=== PATIENT | female | born 1970 | race Caucasian/White ===

== ENCOUNTER 2016-05-08 12:47 | Emergency (ER) | payer OTHER ==
[2016-05-08 13:27] VITALS: BP 137/75; PULSE 79; TEMP 98; BMI 25.6
--- NOTE | 2016-05-08 14:34 | PDOC ---
History of Present Illness - General Chief Complaint: Headache Stated Complaint: HEADACHE Time Seen by Provider: 05/08/16 14:03 History Source: Patient Exam Limitations: No Limitations - History of Present Illness Initial Comments: 05/08/16 14:40 45-year-old female presents to the ED with complaints of 2 days of left retro- orbital pressure which she states is similar to her previous episodes and resolved the last 2 times with medication. Patient states has had a normal head CT and has seen Dr. Walton in the past but has not seen him in the past year. Patient denies visual changes, dizziness, nausea fever, neck stiffness, or ear pain. Patient denies recent dental work, recent head injury or travel. Timing/Duration: reports: other (2 days ) Severity: Yes: moderate Associated Symptoms: reports: other (headache) Past History - Past Medical History Allergies/Adverse Reactions: Allergies Allergy/AdvReac Type Severity Reaction Status Date / Time No Known Allergies Allergy Verified 05/08/16 13:28 Home Medications: Ambulatory Orders NK [No Known Home Medication] 05/08/16 - Reproductive History LMP Normal: Yes Is Patient Now?: No - Psycho/Social/Smoking Cessation Hx Suicidal Ideation: No Smoking History: Never smoked Information on smoking cessation initiated: No Hx Alcohol Use: No Drug/Substance Use Hx: No Substance Use Type: None Hx Substance Use Treatment: No Patient Lives Alone: No Lives with/in: spouse/SO Neuro Specific PMHX - Complaint Specific PMHX Migraine: Yes Review of Systems - Review of Systems Able to Perform ROS?: Yes Constitutional: No: Symptoms Reported HEENTM: No: Symptoms Reported Respiratory: No: Symptoms reported Cardiac (ROS): No: Symptoms Reported ABD/GI: No: Symptoms Reported : No: Symptoms Reported Musculoskeletal: No: Symptoms Reported Integumentary: No: Symptoms Reported Neurological: Yes: Headache Endocrine: No: Symptoms Reported Hematologic/Lymphatic: No: Symptoms Reported *Physical Exam - Vital Signs Last Vital Signs Temp Pulse Resp BP Pulse Ox 98 F 79 18 137/75 99 05/08/16 13:25 05/08/16 13:25 05/08/16 13:25 05/08/16 13:25 05/08/16 13:25 - Physical Exam General Appearance: Yes: Nourished, Appropriately Dressed. No: Apparent Distress HEENT: positive: EOMI, JAKUB, TMs Normal, Pharynx Normal. negative: Pale Conjunctivae Neck: positive: Supple. negative: Tender, Decreased range of motion, Lymphadenopathy (R), Lymphadenopathy (L) Respiratory/Chest: positive: Lungs Clear, Normal Breath Sounds. negative: Respiratory Distress, Accessory Muscle Use Cardiovascular: positive: Regular Rhythm, Regular Rate. negative: Murmur Extremity: negative: Pedal Edema Integumentary: positive: Normal Color, Warm, Moist. negative: Rash Neurologic: positive: Motor Strength 5/5 (ambulatory) Medical Decision Making - Medical Decision Making 05/08/16 14:35 Patient with complaints of left retro-orbital discomfort for the past 2 days without visual changes, dizziness, nausea or fever. Patient states presentation to similar episodes when she has migraines and responds well to Fioricet. Pt states normally occur with her menstrual which she has had x 3 days. Patient states had none at home so decided come to the ER. Pt has had - head ct (2014). Pt ordered for Fioricet. 05/08/16 15:28 Patient states headache has resolved and will be sent home with the same medication and told to follow-up with Dr. Esquivel *DC/Admit/Observation/Transfer Diagnosis at time of Disposition: Headache Qualifiers: Headache type: unspecified Headache chronicity pattern: acute headache Intractability: intractable Qualified Code(s): R51 - Headache - Discharge Dispostion Disposition: HOME Condition at time of disposition: Improved - Referrals Referrals: Maria Del Carmen Angulo MD [Primary Care Provider] - Catia Whitman MD [Staff Physician] - - Patient Instructions Printed Discharge Instructions: DI for Hormonal and Tension Headaches Additional Instructions: Please take fioricet as needed for discomfort. Please follow up with Dr. Whitman as recommended. Please avoid salt and high fatty foods for the next month and follow-up with your PCP
[2016-05-08] MEDS ORDERED: ACETAMINOPHEN/CAFFEINE/BUTALBITAL 1 TAB PO ONE (14:45)
== END 2016-05-08 15:36 | disposition home or self-care (01) ==
LOC: JERFT 12:47
DX: R51 Headache (principal)
CPT/HCPCS: 99281-25

== ENCOUNTER 2017-02-14 20:16 | Emergency (ER) | payer SELFPAY ==
--- NOTE | 2017-02-14 20:21 | PDOC ---
Rapid Medical Evaluation Time Seen by Provider: 02/14/17 20:17 Medical Evaluation: Allergies Allergy/AdvReac Type Severity Reaction Status Date / Time No Known Allergies Allergy Verified 05/08/16 13:28 02/14/17 20:17 I have performed a brief in-person evaluation of this patient. The patient presents with a chief complaint of:rt flank pain, on cipro x 3 days Pertinent physical exam findings: rt cva tenderness, tachy cardic 112 , ? septic I have ordered the following:ua, ucx The patient will proceed to the ED for further evaluation.
[2017-02-14 20:22] VITALS: BP 137/80; PULSE 112; TEMP 98.8; BMI 26.5
[2017-02-14 20:42] LABS: URINE APPEARANCE CLEAR; URINE BILIRUBIN NEGATIVE (NEGATIVE); URINE BLOOD 1+ (NEGATIVE); URINE COLOR STRAW; URINE GLUCOSE (UA) NEGATIVE (NEGATIVE); URINE KETONE NEGATIVE (NEGATIVE); URINE NITRITE NEGATIVE (NEGATIVE); URINE PROTEIN NEGATIVE (NEGATIVE); URINE UROBILINOGEN NEGATIVE mg/dL (0.2-1.0)
[2017-02-14 20:46] LABS: URINE BACTERIA RARE /hpf (NONE SEEN); URINE MUCUS RARE; URINE RBC 3; URINE WBC 8
[2017-02-14] MEDS ORDERED: KETOROLAC TROMETHAMINE 30 MG/1 ML VIAL IVPUSH ONE (23:10)
[2017-02-14] MEDS ORDERED: KETOROLAC TROMETHAMINE 30 MG/1 ML VIAL ONE (23:22)
[2017-02-14 23:36] LABS: BASOPHIL 0.4 % (0-2.0); EOSINOPHIL 0.6 % (0-4.5); MCHC 33.3 g/dl (32.0-36.0); MEAN CELL VOLUME 90.2 fl (80-96); MEAN PLT VOLUME 7.8 fl (7.5-11.1); NEUTROPHILS 68.9 % (42.8-82.8); PLATELET COUNT 324 K/MM3 (134-434); RDW 14.4 % (11.6-15.6); WHITE BLOOD COUNT 13.3 K/mm3 (4.0-10.0)
--- NOTE | 2017-02-14 23:54 | PDOC ---
History of Present Illness - General History Source: Patient, Old Records Exam Limitations: No Limitations - History of Present Illness Initial Comments: 02/14/17 23:54 The patient is a 46 year old female, with no significant past medical history, who presents to the emergency department with right flank pain for over 5 days. She describes the right flank pain as ranging from mild to moderate, without radiation but notes that certain movements exacerbates her pain. She reports that she saw her PMD 3 days ago who prescribed her Antibiotics (Cipro, which she has been taking with little to no relief of her symptoms. She also reports nausea and fever associated with her chief complaint, The patient denies chest pain, shortness of breath, headache and dizziness. Denies chills, vomit, diarrhea and constipation. Denies dysuria, frequency, urgency and hematuria. Allergies: None Past surgical history: None reported Social history: No alcohol, tobacco or drug use reported <Norbert Pulido - Last Filed: 02/14/17 23:54> <April Jurado - Last Filed: 02/15/17 03:26> - General Chief Complaint: Pain Stated Complaint: PAIN, ACUTE Time Seen by Provider: 02/14/17 20:17 Past History <Norbert Pulido - Last Filed: 02/14/17 23:54> - Past Medical History COPD: No - Suicide/Smoking/Psychosocial Hx Smoking History: Never smoked Have you smoked in the past 12 months: No Information on smoking cessation initiated: No Hx Alcohol Use: No Drug/Substance Use Hx: No Substance Use Type: None Hx Substance Use Treatment: No <April Jurado - Last Filed: 02/15/17 03:26> - Past Medical History Allergies/Adverse Reactions: Allergies Allergy/AdvReac Type Severity Reaction Status Date / Time No Known Allergies Allergy Verified 05/08/16 13:28 Home Medications: Ambulatory Orders Acetaminophen/Caffeine/Butalb [Fioricet -] 1 tab PO BID PRN #14 tablet MDD 2 08/17 Review of Systems - Review of Systems Able to Perform ROS?: Yes Comments:: 02/14/17 23:54 GENERAL/CONSTITUTIONAL: (+) Fever. No chills. No weakness. HEAD, EYES, EARS, NOSE AND THROAT: No change in vision. No ear pain or discharge. No sore throat.- CARDIOVASCULAR: No chest pain or shortness of breath RESPIRATORY: No cough, wheezing, or hemoptysis. GASTROINTESTINAL: (+) Nausea. No vomiting, diarrhea or constipation. GENITOURINARY: (+) Right flank pain. No dysuria, frequency, or change in urination. MUSCULOSKELETAL: No joint or muscle swelling or pain. No neck or back pain. SKIN: No rash NEUROLOGIC: No headache, vertigo, loss of consciousness, or change in strength/ sensation. ENDOCRINE: No increased thirst. No abnormal weight change HEMATOLOGIC/LYMPHATIC: No anemia, easy bleeding, or history of blood clots. ALLERGIC/IMMUNOLOGIC: No hives or skin allergy. <Norbert Pulido - Last Filed: 02/14/17 23:54> *Physical Exam - Vital Signs Last Vital Signs Temp Pulse Resp BP Pulse Ox 98.8 F 112 H 18 137/80 99 02/14/17 20:20 02/14/17 20:20 02/14/17 20:20 02/14/17 20:20 02/14/17 20:20 - Physical Exam Comments: 02/14/17 23:55 GENERAL: Awake, alert, and fully oriented, in no acute distress HEAD: No signs of trauma, normocephalic, atraumatic EYES: PERRLA, EOMI, sclera anicteric, conjunctiva clear ENT: Auricles normal inspection, hearing grossly normal, nares patent, oropharynx clear without exudates. Moist mucosa NECK: Normal ROM, supple, no lymphadenopathy, JVD, or masses LUNGS: No distress, speaks full sentences, clear to auscultation bilaterally HEART: Regular rate and rhythm, normal S1 and S2, no murmurs, rubs or gallops, peripheral pulses normal and equal bilaterally. ABDOMEN: (+) Right flank and groin pain. Soft, normoactive bowel sounds. No guarding, no rebound. No masses EXTREMITIES : Normal inspection, Normal range of motion, no edema. No clubbing or cyanosis. NEUROLOGICAL: Cranial nerves II through XII grossly intact. Normal speech, normal gait, no focal sensorimotor deficits SKIN: Warm, Dry, normal turgor, no rashes or lesions noted. <Norbert Pulido - Last Filed: 02/14/17 23:54> - Vital Signs Last Vital Signs Temp Pulse Resp BP Pulse Ox 98.8 F 112 H 18 137/80 99 02/14/17 20:20 02/14/17 20:20 02/14/17 20:20 02/14/17 20:20 02/14/17 20:20 <AdrienApril Dary - Last Filed: 02/15/17 03:26> ED Treatment Course - LABORATORY CBC & Chemistry Diagram: 02/14/17 23:15 02/14/17 23:15 - ADDITIONAL ORDERS Additional order review: Laboratory Results 02/14/17 02/14/17 23:15 20:30 Serum , Qual Negative Urine Color Straw Urine Appearance Clear Urine pH 6.0 Ur Specific Mccleary 1.005 Urine Protein Negative Urine Glucose (UA) Negative Urine Ketones Negative Urine Blood 1+ H Urine Nitrite Negative Urine Bilirubin Negative Urine Urobilinogen Negative Urine WBC (Auto) 8 Urine RBC (Auto) 3 Ur Epithelial Cells Rare Urine Bacteria Rare Urine Mucus Rare 02/14/17 23:15 RBC 4.42 MCV 90.2 MCHC 33.3 RDW 14.4 MPV 7.8 Neutrophils % 68.9 Lymphocytes % 15.9 D Monocytes % 14.2 H D Eosinophils % 0.6 Basophils % 0.4 - Medications Given in the ED: ED Medications Discontinued Medications Generic Name Dose Route Start Last Admin Trade Name Crispinq PRN Reason Stop Dose Admin Ketorolac Tromethamine 30 mg 02/14/17 23:10 02/14/17 23:51 Toradol Injection - IVPUSH 02/14/17 23:11 30 mg ONCE ONE Administration <Norbert Pulido - Last Filed: 02/14/17 23:54> - LABORATORY CBC & Chemistry Diagram: 02/14/17 23:15 02/14/17 23:15 - ADDITIONAL ORDERS Additional order review: Laboratory Results 02/14/17 02/14/17 23:15 20:30 Serum , Qual Negative Urine Color Straw Urine Appearance Clear Urine pH 6.0 Ur Specific Mccleary 1.005 Urine Protein Negative Urine Glucose (UA) Negative Urine Ketones Negative Urine Blood 1+ H Urine Nitrite Negative Urine Bilirubin Negative Urine Urobilinogen Negative Urine WBC (Auto) 8 Urine RBC (Auto) 3 Ur Epithelial Cells Rare Urine Bacteria Rare Urine Mucus Rare 02/14/17 23:15 RBC 4.42 MCV 90.2 MCHC 33.3 RDW 14.4 MPV 7.8 Neutrophils % 68.9 Lymphocytes % 15.9 D Monocytes % 14.2 H D Eosinophils % 0.6 Basophils % 0.4 - Medications Given in the ED: ED Medications Discontinued Medications Generic Name Dose Route Start Last Admin Trade Name Ata PRN Reason Stop Dose Admin Ketorolac Tromethamine 30 mg 02/14/17 23:10 02/14/17 23:51 Toradol Injection - IVPUSH 02/14/17 23:11 30 mg ONCE ONE Administration <April Jurado - Last Filed: 02/15/17 03:26> Medical Decision Making - Medical Decision Making 02/15/17 03:24 This 36-year-old female presents because of continued right flank pain despite being on ciprofloxacin for 3 days. She saw her primary care physician for this right flank pain and some dysuria. She was discouraged that she is still having some symptoms and came to the emergency department. Urinalysis CBC, chemistries were done Negative test She has some leukocytosis and her urine, but she is still not finish her antibiotics. CAT scan of the abdomen and pelvis did not show any obstructing kidney stones, appendix is normal, there is no small bowel obstruction, and was no diverticulitis, there is no acute abdominal pathology Impression flank pain, UTI Plan patient to finish her ciprofloxacin and continue her treatment with primary care physician <April Jurado - Last Filed: 02/15/17 03:26> *DC/Admit/Observation/Transfer - Attestations Scribe Attestion: 02/14/17 23:55 Documentation prepared by Norbert Pulido, acting as medical voucher clerk for April Jurado MD <Norbert Pulido - Last Filed: 02/14/17 23:54> <April Jurado - Last Filed: 02/15/17 03:26> Diagnosis at time of Disposition: Right flank pain Urinary tract infection Qualifiers: Urinary tract infection type: site unspecified Hematuria presence: without hematuria Qualified Code(s): N39.0 - Urinary tract infection, site not specified - Discharge Dispostion Disposition: HOME Condition at time of disposition: Stable - Referrals Referrals: Maria Del Carmen Angulo MD [Primary Care Provider] - - Patient Instructions Printed Discharge Instructions: DI for Urinary Tract Infection (UTI), DI for Flank Pain Additional Instructions: please finish your antibiotics as they were prescribed followup with your regular physician Return for any worsening symptoms Take aleve or motrin or tylenol for back pain - Post Discharge Activity
[2017-02-15 00:45] LABS: ALBUMIN 3.4 g/dl (3.4-5.0); ALK PHOS 115 U/L (45-117); ANION GAP 10 (8-16); BILIRUBIN,TOTAL 0.5 mg/dL (0.2-1.0); CALCIUM 8.4 mg/dL (8.5-10.1); CO2 25 mmol/L (21-32); CREATININE 0.7 mg/dL (0.55-1.02); GLUCOSE,RANDOM 104 mg/dL (74-106); SGPT/ALT 22 U/L (12-78); TOT PROT 7.5 g/dl (6.4-8.2)
[2017-02-15 00:46] LABS: SGOT/AST 20 U/L (15-37)
[2017-02-15 10:02] LABS: URINE LEUK ESTERASE TRACE (NEGATIVE)
== END 2017-02-15 02:18 | disposition home or self-care (01) ==
LOC: JER 20:16
PROC: 3E0333Z Introduction of Anti-inflammatory into Peripheral Vein, Percutaneous Approach (ICD-10-PCS; principal; 2017-02-14)
DX: N39.0 Urinary tract infection, site not specified (principal)
CPT/HCPCS: 36415; 74176-TC; 80053; 81003; 81015; 84703; 85025; 87086; 99282-25

== ENCOUNTER → 2017-10-19 | Day surgery (SDC) | payer OTHER ==
--- NOTE | 2017-10-20 11:18 | PATH ---
Surgical Pathology Report Patient Name: XOCHITL LAWRENCE [facility]. Rec. #: [id number] /Age/Gender: 1970 (Age: 47) / F Account: [id number] Location: [facility] Taken: 10/19/2017 Received: 10/19/2017 Reported: 10/20/2017 Physicians: Zenon Villar M.D. Specimen(s) Received A: RIGHT BREAST SPECIMEN WITH CALCIFICATIONS B: RIGHT BREAST SPECIMEN WITHOUT CALCIFICATIONS Clinical History Nonpalpable lesion Mammographic findings: Microcalcification, suspicious Final Diagnosis A. BREAST, RIGHT, WITH CALCIFICATIONS, STEREOTACTIC CORE BIOPSY: BENIGN BREAST TISSUE WITH FIBROCYSTIC CHANGES INCLUDING STROMAL FIBROSIS, MICROCYSTS, COLUMNAR CELL CHANGES, AND ASSOCIATED MICROCALCIFICATIONS. B. BREAST, RIGHT, WITHOUT CALCIFICATIONS, STEREOTACTIC CORE BIOPSY: BENIGN BREAST TISSUE WITH STROMAL FIBROSIS. Electronically Signed Yaritza Ontiveros M.D. Gross Description A. Received in formalin labeled "right breast with calcifications," are 5 hager-yellow, cylindrical portions of fibroadipose tissue ranging from 2.0-4.0 cm in length and averaging 0.2 cm in diameter. The specimens are submitted in toto in 2 cassettes. B. Received in formalin labeled "right breast without calcifications," are 4 hager-yellow, cylindrical portions of fibroadipose tissue ranging from 0.8-2.8 cm in length and averaging 0.2 cm in diameter. The specimens are submitted in toto in one cassette. Time to formalin fixation: 5 minutes Total formalin fixation time: Approximately 7 hours. /10/19/2017 [facility]10/19/2017
== END | disposition home or self-care (01) ==
LOC: FMAMMOTONE 09:18
PROVIDERS: ATTEND Internal Medicine
PROC: 0HBT3ZX Excision of Right Breast, Percutaneous Approach, Diagnostic (ICD-10-PCS; principal; 2017-10-19)
DX: N60.11 Diffuse cystic mastopathy of right breast (principal); N60.31 Fibrosclerosis of right breast; N64.89 Other specified disorders of breast; R92.1 Mammographic calcification found on diagnostic imaging of breast
CPT/HCPCS: 19081; 88305-TC

== ENCOUNTER 2018-02-02 15:46 | Emergency (ER) | payer OTHER ==
--- NOTE | 2018-02-02 17:13 | PDOC ---
History of Present Illness - General Chief Complaint: CVA/TIA Stated Complaint: ARM NUMBNESS Time Seen by Provider: 02/02/18 17:13 History Source: Patient - History of Present Illness Initial Comments: 02/02/18 17:32 The patient is a 47 year old female with a PMH of migraines who presents to our ED c/o acute onset of L sided numbness. 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 Numbness is on the L side of her face, her LUE and LLE. Notes a similar episode 6 months previous which resolved within a few minutes. No known h/o HTN , lifetime non-smoker. 10 point ROS is negative including chest pain, shortness of breath, abdominal pain, nausea/vomiting, diarrhea/constipation, dysuria/hematuria, tingling, visual or mental status changes or weakness. NKDA Surgical: R breast biopsy Social: denies toxic habits PMD: Dr. Bisi Yarbrough As per EMR, patient last evaluated in our ED in 2016 for abdominal pain at which time she was diagnosed with UTI. Patient evaluated for facial tingling in 2014 @ which time head CT was negative for ischemia. Past History - Past Medical History Allergies/Adverse Reactions: Allergies Allergy/AdvReac Type Severity Reaction Status Date / Time No Known Allergies Allergy Verified 05/08/16 13:28 Home Medications: Ambulatory Orders Acetaminophen/Caffeine/Butalb [Fioricet -] 1 tab PO BID PRN #14 tablet MDD 2 08/17 Rizatriptan Benzoate [Maxalt Boiler Reliner] 10 mg PO ASDIR 02/02/18 COPD: No - Suicide/Smoking/Psychosocial Hx Smoking History: Never smoked Have you smoked in the past 12 months: No Hx Alcohol Use: No Drug/Substance Use Hx: No Substance Use Type: None Hx Substance Use Treatment: No Review of Systems - Review of Systems Constitutional: No: Chills, Fever HEENTM: No: Blurred Vision, Double Vision Respiratory: No: Cough, Shortness of Breath Cardiac (ROS): No: Chest Pain, Lightheadedness, Palpitations, Syncope *Physical Exam - Physical Exam General Appearance: Yes: Nourished, Appropriately Dressed HEENT: positive: EOMI, JAKUB, Normal Voice, Hearing Grossly Normal. negative: TM Bulging, TM Dull, TM Erythema Neck: positive: Trachea midline, Supple Respiratory/Chest: positive: Lungs Clear, Normal Breath Sounds Cardiovascular: positive: S1, S2 Vascular Pulses: Dorsalis-Pedis (R): 2+, Doralis-Pedis (L): 2+ Gastrointestinal/Abdominal: positive: Normal Bowel Sounds, Soft Extremity: positive: Normal Capillary Refill, Normal Inspection Integumentary: positive: Normal Color, Dry, Warm Neurologic: positive: skills instructor II-XII NML intact, Fully Oriented, Alert, Other ( decreased sensation in L face (trigeminal) and LUE ). negative: Confused, Disoriented Heart Score/ECG Review - ECG Impressions Comment:: 02/05/18 01:20 There is normal sinus rhythm with a normal rate of 68 bpm. The axis is normal. The intervals are normal - pr:152ms, QRS: 86ms, QTc:410ms. There are no ST elevations or depressions. ED Treatment Course - LABORATORY CBC & Chemistry Diagram: 02/02/18 17:32 02/02/18 17:32 Medical Decision Making - Medical Decision Making 47 year old female with LUE and facial numbness. NIHSS 2. Last known normal @ 3:30 p.m. (2+ hours prior to evaluation). ED Stroke order set initiated. Consider cervical spine, brainstem, thalamic lesion. Other differential includes radiculopathy, mononeuropathy, metabolic derangement, less like auto- immune (including MS) or infectious Lyme Disease. Reassess. Patient returned from CT Alert, numbness improving. VSS CT results pending Head CT negative for acute ischemia. Patient symptomatically improved. Ambulatory around unit Will discharge home with return precautions and PMD follow-up. *DC/Admit/Observation/Transfer Diagnosis at time of Disposition: Numbness - Discharge Dispostion Disposition: HOME Condition at time of disposition: Good Decision to Admit order: No - Referrals - Patient Instructions Printed Discharge Instructions: DI for Numbness/tingling Additional Instructions: You were evaluated today for numbness and headache. A CT scan of your head showed no concerning findings. At this time you are safe for discharge home. Follow up with your primary care doctor in the next 2-3 days. Return immediately to the Emergency Department for any new/worsening/concerning symptoms. - Post Discharge Activity
[2018-02-02 17:25] VITALS: TEMP 97.9; BMI 25.7
[2018-02-02] MEDS ORDERED: ASPIRIN 325 MG TABLET PO ONE (17:29)
[2018-02-02] MEDS ORDERED: SODIUM CHLORIDE 1,000 ML IV SCH (17:30)
--- NOTE | 2018-02-02 17:47 | PDOC ---
Attending Attestation - HPI HPI: 02/02/18 18:15 The patient is a 47 year old female with no significant PMH who presents to the emergency department with a headache and neck pain since earlier today. The patient reports that she was at work earlier today (patient works as a electrician bus) when she began of experience a headache and neck pain at about 1pm. The patient reports that she subsequently too aspirin with no apparent relief. The patient states that she soon after began to experience pins and needle feeling in her left upper extremity and left leg. She denies any ataxia, weakness, slurred speech or facial asymmetry. She denies any other symptoms. She denies any fever, chills,nausea, vomiting, diarrhea, constipation or urinary symptoms. She denies any chest pain, or dizziness. The patient denies any other complaints. Documentation prepared by Mina Canseco, acting as medical laboratory technicians for Mariann Greer MD. <Mina Canseco - Last Filed: 02/02/18 18:15> - Resident Resident Name: Paulette Rand - ED Attending Attestation I have performed the following: I have examined & evaluated the patient, The case was reviewed & discussed with the resident, I agree w/resident's findings & plan, Exceptions are as noted - Physicial Exam PE: 02/02/18 17:49 GENERAL: The patient is in no acute distress. HEAD: Normal with no signs of trauma. EYES: PERRLA, EOMI, sclera anicteric, conjunctiva clear. ENT: Ears normal, nares patent, oropharynx clear without exudates. Moist mucous membranes. NECK: Normal range of motion, supple, nuchal rigidity LUNGS: Breath sounds equal, no wheezes, and no crackles. HEART:Regular rate and rhythm, normal S1 and S2 without murmur, rub or gallop. ABDOMEN: Soft, nontender EXTREMITIES: Normal range of motion, no edema. No clubbing or cyanosis. No erythema, or tenderness. NEUROLOGICAL: Cranial nerves II through XII grossly intact. Normal speech. No focal neurological deficits. Face symmetric MUSCULOSKELETAL: No cervical spine tenderness to palpation SKIN: Warm, Dry, normal turgor, no rashes or lesions noted. 02/02/18 18:06 - Medical Decision Making 02/02/18 18:08 Twelve-lead EKG was performed and reviewed by me. There is normal sinus rhythm with a normal rate of 68 bpm. The axis is normal. The intervals are normal - pr: 152ms, QRS: 86ms, QTc:410ms. There are no ST elevations or depressions. Pt presents with a complaint of headache and left sided paresthesias No weakness, slurred speech DD: complicated migraine, tia, cva, MS unlikely Will do CT head Will treat migraine Will re assess 02/02/18 19:[address] neg Pt symptoms have resolved Pt requesting to be discharged <Mariann Greer - Last Filed: 02/02/18 19:03>
[2018-02-02] MEDS ORDERED: ACETAMINOPHEN 1000 MG/100 ML VIAL (NON FORMULARY) IVPB ONE (18:09)
[2018-02-02] MEDS ORDERED: METOCLOPRAMIDE HCL INJECTION 10 MG/2 ML VIAL IVPUSH ONE (18:09)
[2018-02-02] MEDS ORDERED: METOCLOPRAMIDE HCL INJECTION 10 MG/2 ML VIAL ONE (18:14)
[2018-02-02] MEDS ORDERED: INSULIN (NOVOLOG) ASPART 100 UNITS/ML 10ML VIAL ONE (18:14)
[2018-02-02] MEDS ORDERED: ASPIRIN 325 MG TABLET ONE (18:14)
[2018-02-02] MEDS ORDERED: ACETAMINOPHEN INJECTION 100 ML IVPB ONE (18:14)
[2018-02-02 18:23] LABS: BASO % 0.5 % (0-2.0); EOS % 0.9 % (0-4.5); LYMPH % 25.3 % (8-40); MCH 30.9 pg (25.7-33.7); MEAN CELL VOLUME 90.8 fl (80-96); NEUT % 65.3 % (42.8-82.8); PLATELET COUNT 343 K/MM3 (134-434); RBC 4.84 M/mm3 (3.60-5.2); RDW 14.4 % (11.6-15.6); WHITE BLOOD COUNT 8.2 K/mm3 (4.0-10.0)
--- NOTE | 2018-02-02 18:30 | PDOC ---
NIH Stroke Scale - Initial Evaluation Level of consciousness: Alert Ask patient the month and their age: Answers both correctly Ask patient to open & close eyes; make fist and let go: Obeys both correctly Best gaze (horizontal eye movement): Normal Visual field testing: No visual field loss Facial paresis (Show teeth/raise eyebrows/close eyes tight): Normal symmetrical movement Motor Function: Left Arm: Normal Motor Function: Right Arm: Normal (extends arm 90 (or 45) degrees for 10 seconds without drift Motor Function: Left Leg: Normal (extends leg 30 degrees for 5 seconds without drift) Motor Function: Right Leg: Normal (extends leg 30 degrees for 5 seconds without drift) Limb Ataxia: No ataxia Sensory(Use pinprick test arms,legs,trunk,face/side to side): Mild to moderate decrease in sensation Best language (Describe picture, name items, read sentences): No Aphasia Dysarthria (read several words): Normal articulation Extinction and Inattention: No abnormality - Total Score NIH Stroke Scale Score: 1
[2018-02-02 18:33] VITALS: BP 164/90; PULSE 91
[2018-02-02 18:37] LABS: INR 0.97 (0.83-1.09); PROTHROMBIN TIME (PATIENT) 11.4 SEC (9.7-13.0)
[2018-02-02 18:38] LABS: URINE APPEARANCE CLEAR; URINE BILIRUBIN NEGATIVE (<2.0 mg/dL); URINE COLOR COLORLESS; URINE GLUCOSE (UA) NEGATIVE (NEGATIVE); URINE KETONE NEGATIVE (NEGATIVE); URINE LEUK ESTERASE NEGATIVE (NEGATIVE); URINE NITRITE NEGATIVE (NEGATIVE); URINE PROTEIN NEGATIVE (NEGATIVE); URINE UROBILINOGEN NEGATIVE mg/dL (0.2-1.0)
[2018-02-02 18:49] LABS: ALBUMIN 3.9 g/dl (3.4-5.0); ALK PHOS 100 U/L (45-117); ANION GAP 7 MMOL/L (8-16); BILIRUBIN,TOTAL 0.4 mg/dL (0.2-1); BLOOD UREA NITROGEN 11 mg/dL (7-18); CALCIUM 9.5 mg/dL (8.5-10.1); CHLORIDE 108 mmol/L (98-107); CHOLESTEROL 157 mg/dL (50-200); CO2 25 mmol/L (21-32); CREATININE 0.7 mg/dL (0.55-1.3); GLUCOSE,RANDOM 92 mg/dL (74-106); HDL CHOLESTEROL 74 mg/dL (40-60); POTASSIUM 4.8 mmol/L (3.5-5.1); SGOT/AST 19 U/L (15-37); SGPT/ALT 20 U/L (13-61); SODIUM 140 mmol/L (136-145); TOT PROT 7.9 g/dl (6.4-8.2); TRIGLYCERIDES 71 mg/dL (0-150)
--- NOTE | 2018-02-03 12:41 | EKG ---
Test Reason : Blood Pressure : / mmHG Vent. Rate : 068 BPM Atrial Rate : 068 BPM P-R Int : 152 ms QRS Dur : 086 ms QT Int : 386 ms P-R-T Axes : 076 063 045 degrees QTc Int : 410 ms NORMAL SINUS RHYTHM POSSIBLE LEFT ATRIAL ENLARGEMENT WHEN COMPARED WITH ECG OF 18-JAN-2015 18:46, NO SIGNIFICANT CHANGE WAS FOUND Confirmed by VIBHA CHAVEZ MD ([id number]) on 02/03/2018 12:41:00 PM Referred By: Confirmed By:VIBHA CHAVEZ MD
== END 2018-02-02 19:04 | disposition home or self-care (01) ==
LOC: JER 15:46
PROC: 3E033NZ Introduction of Analgesics, Hypnotics, Sedatives into Peripheral Vein, Percutaneous Approach (ICD-10-PCS; principal; 2018-02-02)
PROC: 3E033GC Introduction of Other Therapeutic Substance into Peripheral Vein, Percutaneous Approach (ICD-10-PCS; 2018-02-02)
DX: R20.0 Anesthesia of skin (principal)
CPT/HCPCS: 36415; 70450-TC; 71045-TC-FY; 72125-TC; 80053; 81003; 82465; 82550; 83718; 83721; 84478; 84484; 84703; 85025; 85610; 86850; 86900; 86901; 93005; 93010; 96374; 96375; 99285-25; J0131; J7030

== ENCOUNTER 2018-05-22 20:27 | Emergency (ER) | payer SELFPAY ==
--- NOTE | 2018-05-22 20:46 | PDOC ---
Rapid Medical Evaluation Chief Complaint: Pain Time Seen by Provider: 05/22/18 20:44 Medical Evaluation: Allergies Allergy/AdvReac Type Severity Reaction Status Date / Time No Known Allergies Allergy Verified 05/08/16 13:28 05/22/18 20:45 I have performed a brief in person evaluation of this patient. CC: abdominal pain HPI: Pt is a 47 YO female who has had abdominal pain x 1 day. PE: Skin: Clear Lungs: Clear Heart:RRR Abd: soft, nontender MS: Moves all extremities without difficulty Neuro: Alert and oriented Psych: Appropriate affect I have ordered the following: abdominal protocol Pt will proceed to the main ED for further evaluation. Discharge Disposition - Diagnosis Abdominal pain Qualifiers: Abdominal location: generalized Qualified Code(s): R10.84 - Generalized abdominal pain - Referrals - Patient Instructions - Post Discharge Activity
[2018-05-22 20:48] VITALS: BP 134/80; PULSE 103; TEMP 98.8; BMI 24.7
--- NOTE | 2018-05-22 21:22 | PDOC ---
*Physical Exam - Vital Signs Last Vital Signs Temp Pulse Resp BP Pulse Ox 98.8 F 103 H 18 134/80 99 05/22/18 20:45 05/22/18 20:45 05/22/18 20:45 05/22/18 20:45 05/22/18 20:45 ED Treatment Course - LABORATORY CBC & Chemistry Diagram: 05/22/18 21:05 05/22/18 21:05 Medical Decision Making - Medical Decision Making 05/22/18 21:22 Patient seen by the advanced practice provider under my direct supervision. Ancillary testing reviewed as necessary. I agree with plan as outlined by the advanced practice provider. *DC/Admit/Observation/Transfer Diagnosis at time of Disposition: Abdominal pain Qualifiers: Abdominal location: generalized Qualified Code(s): R10.84 - Generalized abdominal pain Ovarian cyst Qualifiers: Laterality: right Qualified Code(s): N83.201 - Unspecified ovarian cyst, right side - Discharge Dispostion Disposition: HOME - Referrals - Patient Instructions Printed Discharge Instructions: Ovarian Cyst Additional Instructions: you may take tylenol every 6 hours as needed for pain drink plenty of fluids start a BRAT (bananas, rice apples and toast) diet Additional Instructions: * Please call your personal physician to report your Emergency Department visit and to report your progress, if any. * If there is no improvement in symptoms in 2 days call your physician. * Return to the Emergency Department for any worsening symptoms. - Post Discharge Activity Forms/Work/School Notes: Back to Work
[2018-05-22 21:42] LABS: BASO % 0.1 % (0-2.0); EOS % 0.6 % (0-4.5); HEMATOCRIT 44.8 % (32.4-45.2); HEMOGLOBIN 15.6 GM/dL (10.7-15.3); LYMPH % 7.3 % (8-40); MCH 31.8 pg (25.7-33.7); MCHC 34.8 g/dl (32.0-36.0); MEAN CELL VOLUME 91.4 fl (80-96); MEAN PLT VOLUME 8.1 fl (7.5-11.1); MONO % 3.2 % (3.8-10.2); NEUT % 88.8 % (42.8-82.8); PLATELET COUNT 291 K/MM3 (134-434); RDW 14.2 % (11.6-15.6); WHITE BLOOD COUNT 9.1 K/mm3 (4.0-10.0)
[2018-05-22 21:50] LABS: URINE APPEARANCE SLCLOUDY; URINE BILIRUBIN NEGATIVE (<2.0 mg/dL); URINE COLOR LTYELLOW; URINE GLUCOSE (UA) NEGATIVE (NEGATIVE); URINE KETONE NEGATIVE (NEGATIVE); URINE LEUK ESTERASE NEGATIVE (NEGATIVE); URINE NITRITE NEGATIVE (NEGATIVE); URINE PROTEIN NEGATIVE (NEGATIVE); URINE UROBILINOGEN NEGATIVE mg/dL (0.2-1.0)
[2018-05-22 22:04] LABS: ALBUMIN 3.8 g/dl (3.4-5.0); ALK PHOS 111 U/L (45-117); ANION GAP 7 MMOL/L (8-16); BILIRUBIN,TOTAL 0.9 mg/dL (0.2-1); BLOOD UREA NITROGEN 17 mg/dL (7-18); CALCIUM 8.8 mg/dL (8.5-10.1); CHLORIDE 99 mmol/L (98-107); CO2 29 mmol/L (21-32); CREATININE 0.7 mg/dL (0.55-1.3); GLUCOSE,RANDOM 106 mg/dL (74-106); LIPASE 157 U/L (73-393); POTASSIUM 4.5 mmol/L (3.5-5.1); SGOT/AST 22 U/L (15-37); SGPT/ALT 25 U/L (13-61); SODIUM 135 mmol/L (136-145); TOT PROT 7.9 g/dl (6.4-8.2)
[2018-05-22] MEDS ORDERED: SODIUM CHLORIDE 0.9% 500 ML INFUS.BAG IV ONE (22:27)
[2018-05-22] MEDS ORDERED: ONDANSETRON 4 MG/2 ML VIAL IVPUSH ONE (22:27)
[2018-05-22] MEDS ORDERED: ONDANSETRON 4 MG/2 ML VIAL ONE (22:34)
--- NOTE | 2018-05-22 23:29 | PDOC ---
History of Present Illness - General Chief Complaint: Pain Stated Complaint: ABDOMINAL PAIN Time Seen by Provider: 05/22/18 20:44 History Source: Patient - History of Present Illness Initial Comments: 05/22/18 23:44 47-year-old female with right-sided abdominal pain since 1 PM today with nausea reports that the pain is worse throughout the day.. Denies fevers/chills. Reports pain is more constant to the right lower quadrant and right upper quadrant. Denies fevers/chills.Patient denies urinary symptoms, vomiting, diarrhea, constipation, chest pain, flank pain. Patient has a past medical history of hypertension. Past History - Past Medical History Allergies/Adverse Reactions: Allergies Allergy/AdvReac Type Severity Reaction Status Date / Time No Known Allergies Allergy Verified 05/22/18 20:48 Home Medications: Ambulatory Orders Hydrochlorothiazide [Hctz -] 12.5 mg PO DAILY 05/22/18 COPD: No HTN: Yes - Suicide/Smoking/Psychosocial Hx Smoking History: Never smoked Have you smoked in the past 12 months: No Information on smoking cessation initiated: No Hx Alcohol Use: No Drug/Substance Use Hx: No Substance Use Type: None Hx Substance Use Treatment: No Review of Systems - Review of Systems Able to Perform ROS?: Yes Is the patient limited Citizen [place] proficient: No Constitutional: No: Symptoms Reported, See HPI, Chills, Diaphoresis, Fever, Loss of Appetite, Malaise, Night Sweats, Weakness, Weight Stable, Unintentional Wgt. Loss, Unexplained wgt Loss, Other Respiratory: No: Symptoms reported, See HPI, Cough, Orthopnea, Shortness of Breath, SOB with Exertion, SOB at Rest, Stridor, Wheezing, Productive cough, Hemoptysis, Other Cardiac (ROS): No: Symptoms Reported, See HPI, Chest Pain, Edema, Irregular Heart Rate, Lightheadedness, Palpitations, Syncope, Chest Tightness, Other ABD/GI: Yes: Nausea, Abdominal cramping. No: Symptoms Reported, See HPI, Abdominal Distended, Abd. Pain w/ defecation, Blood Streaked Bowels, Constipated , Diarrhea, Difficulty Swallowing, Poor Appetite, Poor Fluid Intake, Rectal Bleeding, Vomiting, Indigestion, Tarry Stools, Other : No: Symptoms Reported, See HPI, Burning, Dysuria, Discharge, Frequency, Flank Pain, Hematuria, Incontinence, Pain, Urgency, Testicular Mass, Testicular Swelling, Lesions, Testicular Pain, Other *Physical Exam - Vital Signs Last Vital Signs Temp Pulse Resp BP Pulse Ox 98.8 F 103 H 18 134/80 99 05/22/18 20:45 05/22/18 20:45 05/22/18 20:45 05/22/18 20:45 05/22/18 20:45 - Physical Exam General Appearance: Yes: Appropriately Dressed Respiratory/Chest: positive: Lungs Clear, Normal Breath Sounds Female Pelvic Exam: positive: normal external exam, normal adnexa Gastrointestinal/Abdominal: positive: Normal Bowel Sounds, Tender (RUQ/RlQ), Soft Musculoskeletal: positive: Normal Inspection Extremity: positive: Normal Capillary Refill, Normal Inspection Integumentary: positive: Dry, Warm Neurologic: positive: Fully Oriented, Alert, Normal Mood/Affect Moderate Sedation - Procedure Monitoring Vital Signs: Procedure Monitoring Vital Signs Temperature 98.8 F 05/22/18 20:45 Pulse Rate 103 H 05/22/18 20:45 Respiratory Rate 18 05/22/18 20:45 Blood Pressure 134/80 05/22/18 20:45 O2 Sat by Pulse Oximetry (%) 99 05/22/18 20:45 ED Treatment Course - LABORATORY CBC & Chemistry Diagram: 05/22/18 21:05 05/22/18 21:05 - ADDITIONAL ORDERS Additional order review: Laboratory Results 05/22/18 05/22/18 05/22/18 21:08 21:08 21:05 Sodium 135 L Potassium 4.5 Chloride 99 Carbon Dioxide 29 Anion Gap 7 L BUN 17 Creatinine 0.7 Creat Clearance w eGFR > 60 Random Glucose 106 Calcium 8.8 Total Bilirubin 0.9 AST 22 ALT 25 Alkaline Phosphatase 111 Total Protein 7.9 Albumin 3.8 Lipase 157 Urine Color Ltyellow Urine Appearance Slcloudy Urine pH 7.0 Ur Specific Morrill 1.024 Urine Protein Negative Urine Glucose (UA) Negative Urine Ketones Negative Urine Blood Negative Urine Nitrite Negative Urine Bilirubin Negative Urine Urobilinogen Negative Ur Leukocyte Esterase Negative Urine HCG, Qual Negative 05/22/18 21:05 RBC 4.90 MCV 91.4 MCHC 34.8 RDW 14.2 MPV 8.1 Neutrophils % 88.8 H D Lymphocytes % 7.3 L D Monocytes % 3.2 L Eosinophils % 0.6 Basophils % 0.1 - RADIOLOGY Radiology Studies Ordered: Category Date Time Status ABDOMEN & PELVIS CT WITH CONTR [CT] Stat CT Scan 05/22/18 22:10 Completed ABDOMEN US -LIMITED [US] Stat Ultrasound 05/22/18 21:42 Completed - Medications Given in the ED: ED Medications Discontinued Medications Generic Name Dose Route Start Last Admin Trade Name Ata PRN Reason Stop Dose Admin Ondansetron HCl 4 mg 05/22/18 22:27 05/22/18 22:42 Zofran Injection IVPUSH 05/22/18 22:28 4 mg ONCE ONE Administration Sodium Chloride 1,000 ml 05/22/18 22:27 05/22/18 22:42 Normal Saline - IV 05/22/18 22:28 1,000 ml ONCE ONE Administration Progress Note - Progress Note Progress Note: Abdominal pain; ovarian cyst P: CBC slight shift noted CMP Medical Decision Making - Medical Decision Making 05/22/18 23:47 CTAP:Moderate fluid flailed gastric distention as mild fluid-filled small bowel distention due to recent indigestion. 3 cm right ovarian cyst is noted. 1 cm involuting left ovarian cyst is seated seen appendix demonstrated no definite abnormality. 05/23/18 00:32 patient has no pain now. advised to follow up saturation diver outpatient. *DC/Admit/Observation/Transfer Diagnosis at time of Disposition: Abdominal pain Qualifiers: Abdominal location: generalized Qualified Code(s): R10.84 - Generalized abdominal pain Ovarian cyst Qualifiers: Laterality: right Qualified Code(s): N83.201 - Unspecified ovarian cyst, right side - Discharge Dispostion Disposition: HOME - Referrals - Patient Instructions Printed Discharge Instructions: Ovarian Cyst Additional Instructions: you may take tylenol every 6 hours as needed for pain drink plenty of fluids start a BRAT (bananas, rice apples and toast) diet Additional Instructions: * Please call your personal physician to report your Emergency Department visit and to report your progress, if any. * If there is no improvement in symptoms in 2 days call your physician. * Return to the Emergency Department for any worsening symptoms. - Post Discharge Activity Forms/Work/School Notes: Back to Work
[2018-05-22] MEDS ORDERED: KETOROLAC TROMETHAMINE 30 MG/1 ML VIAL IVPUSH ONE (23:30)
[2018-05-22] MEDS ORDERED: KETOROLAC TROMETHAMINE 30 MG/1 ML VIAL ONE (23:35)
== END 2018-05-23 00:44 | disposition home or self-care (01) ==
LOC: JER 20:27
PROC: 3E033GC Introduction of Other Therapeutic Substance into Peripheral Vein, Percutaneous Approach (ICD-10-PCS; principal; 2018-05-22)
PROC: 3E0333Z Introduction of Anti-inflammatory into Peripheral Vein, Percutaneous Approach (ICD-10-PCS; 2018-05-22)
DX: N83.201 Unspecified ovarian cyst, right side (principal); I10 Essential (primary) hypertension
CPT/HCPCS: 36415; 74177-TC; 76705-TC; 80053; 81003; 83690; 84703; 85025; 99283-25

== ENCOUNTER 2018-05-27 18:26 | Emergency (ER) | payer SELFPAY ==
[2018-05-27 18:36] VITALS: BP 148/84; PULSE 79; TEMP 97.7; BMI 28.3
--- NOTE | 2018-05-27 18:49 | PDOC ---
History of Present Illness <Danni Weldon - Last Filed: 05/27/18 19:59> - History of Present Illness Initial Comments: 47yo F with PMH of HTN presenting with RLQ abdominal pain and L. sided back pain. Patient states that she presented to this ED three days ago for the same symptoms. She was told that she has a kidney stone, discharged, and instructed to take tylenol for her pain and make dietary changes. Patient has taken tylenol at home with minimal relief. She describes her pain as "sharp"" and constant. She took diclofenac yesterday which relieved her pain. Last bowel movement was this morning and was a normal formed brown stool. Last menstrual period was at the end of April. Patient reports having nausea yesterday, but no vomiting and she is not feeling nausea currently. Back pain is located in her left flank. Denies fevers, chills, urinary symptoms, chest pain, or shortness of breath. Per chart review, patient was in the ED on 05/[address] and US which did not show acute pathology. Imaging did show a 3 cm R. ovarian cyst and normal kidneys. Patient denies being told she had an ovarian cyst. History taken with assistance from [employer] park interpreter [id number]. <Nabila Huerta - Last Filed: 05/27/18 23:03> - General Chief Complaint: Pain Stated Complaint: ABD PAIN Time Seen by Provider: 05/27/18 18:49 Past History <Danni Weldon - Last Filed: 05/27/18 19:59> - Past Medical History COPD: No HTN: Yes - Suicide/Smoking/Psychosocial Hx Smoking History: Never smoked Have you smoked in the past 12 months: No Information on smoking cessation initiated: No Hx Alcohol Use: No Drug/Substance Use Hx: No Substance Use Type: None Hx Substance Use Treatment: No <Nabila Huerta - Last Filed: 05/27/18 23:03> - Past Medical History Allergies/Adverse Reactions: Allergies Allergy/AdvReac Type Severity Reaction Status Date / Time No Known Allergies Allergy Verified 05/22/18 20:48 Home Medications: Ambulatory Orders Hydrochlorothiazide [Hctz -] 12.5 mg PO DAILY 05/22/18 Methocarbamol [Robaxin -] 500 mg PO BID #30 tablet 05/27/18 Review of Systems - Review of Systems Comments:: Constitutional: no fever, no chills HEENT: no throat pain, no dysphagia Cardiovascular: no chest pain, no palpitations Respiratory: no cough, no shortness of breath Gastrointestinal: +abdominal pain, +nausea Genitourinary: no dysuria, no frequency Musculoskeletal: no leg pain, +back pain Skin: no rash, no itching Neurologic: no headache, no dizziness <Nabila - Last Filed: 05/27/18 23:03> *Physical Exam - Vital Signs Last Vital Signs Temp Pulse Resp BP Pulse Ox 97.7 F 79 20 148/84 100 05/27/18 18:34 05/27/18 18:34 05/27/18 18:34 05/27/18 18:34 05/27/18 18:34 <Danni Weldon - Last Filed: 05/27/18 19:59> - Vital Signs Last Vital Signs Temp Pulse Resp BP Pulse Ox 97.7 F 79 20 148/84 100 05/27/18 18:34 05/27/18 18:34 05/27/18 18:34 05/27/18 18:34 05/27/18 18:34 - Physical Exam Comments: General: Awake, alert, and fully oriented, in no acute distress Head: No signs of trauma Eyes: EOMI, sclera anicteric ENT: Moist mucus membranes Neck: Normal ROM, supple Lungs: Lungs clear, Normal breath sounds Cardio: Regular rhythm, S1 and S2 present Abdomen: Tender to palpation in RLQ, Soft. No guarding, no rebound, no masses; + L. CVA tenderness Extremities: Normal range of motion, Distal pulses present SKIN: Warm, Dry, normal turgor Neurologic: Cranial nerves II through XII grossly intact. Normal speech <Nabila - Last Filed: 05/27/18 23:03> Moderate Sedation - Procedure Monitoring Vital Signs: Procedure Monitoring Vital Signs Temperature 97.7 F 05/27/18 18:34 Pulse Rate 79 05/27/18 18:34 Respiratory Rate 20 05/27/18 18:34 Blood Pressure 148/84 05/27/18 18:34 O2 Sat by Pulse Oximetry (%) 100 05/27/18 18:34 <Danni Weldon - Last Filed: 05/27/18 19:59> - Procedure Monitoring Vital Signs: Procedure Monitoring Vital Signs Temperature 97.7 F 05/27/18 18:34 Pulse Rate 79 05/27/18 18:34 Respiratory Rate 20 05/27/18 18:34 Blood Pressure 148/84 05/27/18 18:34 O2 Sat by Pulse Oximetry (%) 100 05/27/18 18:34 <Nabila uHerta - Last Filed: 05/27/18 23:03> ED Treatment Course - Medications Given in the ED: ED Medications Discontinued Medications Generic Name Dose Route Start Last Admin Trade Name Ata PRN Reason Stop Dose Admin Cyclobenzaprine HCl 10 mg 05/27/18 19:48 05/27/18 19:58 Flexeril - PO 05/27/18 19:49 10 mg ONCE ONE Administration <Danni Weldon - Last Filed: 05/27/18 19:59> Medical Decision Making - Medical Decision Making 47yo F with PMH of HTN presenting with RLQ abdominal pain and L. sided back pain. Patient coming in with same complaint as three days ago. Today's abdominal exam without peritoneal signs. Back pain is likely muscular in origin as it is overlying the paravertebral muscles and UA was negative three days ago. Reviewed lab work and imaging which were benign. Discussed with patient that her pain is consistent with the ovarian cyst found three days ago and that she can take tylenol for her abdominal pain. Ordered flexeril for patient's back pain. Patient discharged 05/27/18 21:42 <Nabila Huerta - Last Filed: 05/27/18 23:03> *DC/Admit/Observation/Transfer - Discharge Dispostion Decision to Admit order: No <Danni Weldon - Last Filed: 05/27/18 19:59> <Nabila Huerta - Last Filed: 05/27/18 23:03> Diagnosis at time of Disposition: Ovarian cyst, Back pain - Discharge Dispostion Disposition: HOME Condition at time of disposition: Stable - Prescriptions Prescriptions: Methocarbamol [Robaxin -] 500 mg PO BID #30 tablet - Patient Instructions Printed Discharge Instructions: Managing Chronic Low Back Pain, Back Pain ( Alternative Therapy), DI for Thoracic Back Pain Additional Instructions: You came to the ED for back and abdominal pain. We performed an exam which had low suspicion for acute pathology. Prescription sent to your pharmacy. You can also take [id number] tylenol for pain. Follow the instructions on the medication bottle. Follow-up with you primary care physician in 5-7 days to discuss this ED visit and to further evaluate your back pain. Your care is not complete until you do so. Call and make an appointment. Immediate medical attention is required if you have back pain and : numbness in the genital or rectal area, loss of bowel or bladder control, difficulty with urination; fever, unexplained weight loss, or other signs of illness or infection. If you think you are having an emergency, call for emergency medical ==== Llegaste a la pipo de emergencias por dolor de espalda y abdominal. Realizamos un examen con baja sospecha de patologa aguda. Receta enviada a foster farmacia. Maverick puede homero tylenol de venta ganga para el dolor. Siga las instrucciones en el envase del medicamento. Ivy un seguimiento con foster mdico de atencin primaria en 5 a 7 scott para hablar sobre esta visita a la pipo de urgencias y evaluar ms a fondo foster dolor de espalda. Tu cuidado no est completo hasta que lo hagas. Llame y ivy coral linda. Se requiere atencin mdica inmediata si tiene dolor de espalda y: adormecimiento en el juancarlos genital o rectal, prdida del control de la vejiga o los intestinos, dificultad para orinar; fiebre, prdida de peso inexplicable u otros signos de enfermedad o infeccin. Si kelsy que tiene coral emergencia, llame a un mdico de emergencia. Print Language: MONGOLIAN - Post Discharge Activity Forms/Work/School Notes: Back to Work
--- NOTE | 2018-05-27 19:07 | PDOC ---
Attending Attestation - HPI HPI: 05/27/18 19:54 The patient is a 47 year old female with a PMH of HTN who presents to the ER with abdominal pain and back pain since yesterday. Patient was seen in this ED on 05/22 for similar symptoms and was told she had a right sided ovarian cyst and to take Tylenol every 6 hours for pain. Patient states the abdominal pain is right sided and the back pain is localized on the left flank and both worsen with movement. Patient has been tolerating PO intake. Patients last bowel movement was this morning. Denies fevers/chills, urinary symptoms, vomiting, diarrhea, constipation, chest pain, or shortness of breath. Allergies: NKA Past surgical history: None reported. Social history: No reported alcohol, drug or cigarette use. - Physicial Exam PE: 05/27/18 19:54 ADULT EXAM GENERAL: Awake, alert, and fully oriented, in no acute distress LUNGS: Breath sounds equal, clear to auscultation bilaterally. No wheezes, and no crackles HEART: Regular rate and rhythm, normal S1 and S2, no murmurs, rubs or gallops. ( +) Minimal right lower quadrant pain. ABDOMEN: Soft, normoactive bowel sounds. No guarding, no rebound. No masses. EXTREMITIES: Normal range of motion, no edema. NEUROLOGICAL: Cranial nerves II through XII grossly intact. SKIN: Warm, Dry, normal turgor, no rashes or lesions noted. <Sonya Urrutia - Last Filed: 05/27/18 19:59> - Resident Resident Name: Nabila Huerta - ED Attending Attestation I have performed the following: I have examined & evaluated the patient, The case was reviewed & discussed with the resident, I agree w/resident's findings & plan - Medical Decision Making 05/27/18 20:01 Pt returns with left muscular flank pain, and minimal Right ovarian pain. 05/27/18 20:03 Pt is eating and drinking and moving bowels and not neuseous or vomiting or diarrhea or UTI symptoms. She is not febrile. She looks great and she feels the back pain only when she moves and lifts things. This is muscular pain and she is ready to go home. <Danni Weldon - Last Filed: 05/27/18 20:04>
[2018-05-27] MEDS ORDERED: CYCLOBENZAPRINE HCL 10 MG TABLET (FP) PO ONE (19:48)
[2018-05-27] MEDS ORDERED: CYCLOBENZAPRINE HCL 10 MG TABLET (FP) ONE (19:56)
== END 2018-05-27 20:06 | disposition home or self-care (01) ==
LOC: JER 18:26
DX: N83.201 Unspecified ovarian cyst, right side (principal); I10 Essential (primary) hypertension
CPT/HCPCS: 99282-25

== ENCOUNTER 2018-10-18 22:15 | Emergency (ER) | payer OTHER ==
[2018-10-18 22:38] VITALS: BP 160/87; PULSE 90; TEMP 98.1; BMI 28.1
--- NOTE | 2018-10-19 00:38 | PDOC ---
History of Present Illness - General Chief Complaint: Blood Pressure Problem Stated Complaint: HIGH B/P Time Seen by Provider: 10/19/18 00:25 - History of Present Illness Initial Comments: 10/19/18 00:30 CHIEF COMPLAINT: high blood pressuer HISTORY OF PRESENT ILLNESS: 48 yo F with hx of migraines presents to ED with concerns of high blood pressure tonight. Patient reports that she "felt weird today and her BP at home was 175/80. She reports she was recently seen at [facility] and had a "CT that was normal, and, everything was normal including carotid ultrasound." Patient denies any chance of . She admits to being very anxious about her blood pressure and keeps checking it because she "feels weird sometimes." PCP is Fidencio Botello. No recent travel or sick contacts. PAST MEDICAL HISTORY: Denies past medical history FAMILY HISTORY: Denies SOCIAL HISTORY: Denies tobacco, alcohol, illicit drug use. SURGICAL HISTORY: Denies ALLERGIES: No known drug allergies REVIEW OF SYSTEMS General/Constitutional: "I feel weird:" HEENT: Denies change in vision. Denies ear pain or discharge. Denies sore throat. Cardiovascular: Denies chest pain or shortness of breath. Respiratory: Denies cough, wheezing, or hemoptysis. Gastrointestinal: Denies nausea, vomiting, diarrhea or constipation. Denies rectal bleeding. Genitourinary: Denies dysuria, frequency, or change in urination. Musculoskeletal: Denies joint or muscle swelling or pain. Denies neck or back pain. Skin and breasts: Denies rash or easy bruising. Neurologic: Denies headache, vertigo, loss of consciousness, or loss of sensation. PHYSICAL EXAM General Appearance: Well-appearing, appropriately dressed. No apparent distress , no intoxication. HEENT: EOMI, PERRLA, normal ENT inspection, normal voice, TMs normal, pharynx normal. No conjunctival pallor. No photophobia, scleral icterus. Neck: Supple. Trachea midline. No tenderness, rigidity, carotid bruit, stridor , lymphadenopathy, or thyromegaly. Respiratory/Chest: Lungs CTAB. No shortness of breath, chest tenderness, respiratory distress, accessory muscle use. No crackles, rales, rhonchi, stridor , wheezing, dullness Cardiovascular: RRR. S1, S2. No JVD, murmur, bradycardia, tachycardia. Vascular Pulses: Dorsalis-Pedis (R): 2+, Dorsalis-Pedis (L): 2+ Gastrointestinal/Abdominal: Normal bowel sounds. Abdomen soft, non-distended. No tenderness or rebound tenderness. No organomegaly, pulsatile mass, guarding , hernia, hepatomegaly, splenomegaly. Lymphatic: No adenopathy, tenderness. Musculoskeletal/Extremities: Normal inspection. FROM of all extremities, normal capillary refill. Pelvis Stable. No CVA tenderness. No tenderness to extremities, pedal edema, swelling, erythema or deformity. Integumentary: Appropriate color, dry, warm. No cyanosis, erythema, jaundice or rash Neurologic: distribution sales manager II-XII intact. Fully oriented, alert. Appropriate mood/affect. Motor strength 5/5. No appreciable EOM palsy, facial droop or sensory deficit. Past History - Past Medical History Allergies/Adverse Reactions: Allergies Allergy/AdvReac Type Severity Reaction Status Date / Time No Known Allergies Allergy Verified 10/18/18 22:38 Home Medications: Ambulatory Orders Hydrochlorothiazide [Hctz -] 12.5 mg PO DAILY 05/22/18 Methocarbamol [Robaxin -] 500 mg PO BID #30 tablet 05/27/18 Hydroxyzine HCl 50 mg PO TID PRN #20 tablet 10/19/18 COPD: No HTN: Yes - Immunization History Immunization Up to Date: Yes - Suicide/Smoking/Psychosocial Hx Smoking History: Never smoked Have you smoked in the past 12 months: No Information on smoking cessation initiated: No Hx Alcohol Use: No Drug/Substance Use Hx: No Substance Use Type: None Hx Substance Use Treatment: No *Physical Exam - Vital Signs Last Vital Signs Temp Pulse Resp BP Pulse Ox 98.1 F 90 16 160/87 100 10/18/18 22:35 10/18/18 22:35 10/18/18 22:35 10/18/18 22:35 10/18/18 22:35 Medical Decision Making - Medical Decision Making 10/21/18 01:20 48 yo F with hx of migraines presents to ED with concerns of high blood pressure tonight. BP stable in ED. Will d/c with hydroxyzine for anxiety surrounding BP. Pt to f/u with PCP. *DC/Admit/Observation/Transfer Diagnosis at time of Disposition: Anxiety Headache Qualifiers: Headache type: other headache syndrome Qualified Code(s): G44.89 - Other headache syndrome - Discharge Dispostion Disposition: HOME Condition at time of disposition: Stable Decision to Admit order: No - Prescriptions Prescriptions: Hydroxyzine HCl 50 mg PO TID PRN #20 tablet PRN Reason: Anxiety - Referrals - Patient Instructions Printed Discharge Instructions: DI for Anxiety -- Adult, How to Monitor Your Blood Pressure at Home - Post Discharge Activity Forms/Work/School Notes: Back to Work
== END 2018-10-19 01:12 | disposition home or self-care (01) ==
LOC: JER 22:15
DX: F41.9 Anxiety disorder, unspecified (principal); G44.89 Other headache syndrome; I10 Essential (primary) hypertension
CPT/HCPCS: 99281-25

== ENCOUNTER 2018-10-31 10:33 | Emergency (ER) | payer OTHER ==
[2018-10-31 10:45] VITALS: BP 144/78; PULSE 77; TEMP 98.1; BMI 23.8
--- NOTE | 2018-10-31 11:44 | PDOC ---
History of Present Illness - General Chief Complaint: RX Refill Stated Complaint: ANXIETY Time Seen by Provider: 10/31/18 10:59 History Source: Patient Exam Limitations: Language Barrier (Estonian ID# [id number]) Past History - Past Medical History Allergies/Adverse Reactions: Allergies Allergy/AdvReac Type Severity Reaction Status Date / Time No Known Allergies Allergy Verified 10/18/18 22:38 Home Medications: Ambulatory Orders Hydrochlorothiazide [Hctz -] 12.5 mg PO DAILY 05/22/18 Methocarbamol [Robaxin -] 500 mg PO BID #30 tablet 05/27/18 Hydroxyzine HCl 50 mg PO TID PRN #20 tablet 10/19/18 COPD: No HTN: Yes Other medical history: ANXIETY - Immunization History Immunization Up to Date: Yes - Suicide/Smoking/Psychosocial Hx Smoking History: Never smoked Have you smoked in the past 12 months: No Information on smoking cessation initiated: No Hx Alcohol Use: No Drug/Substance Use Hx: No Substance Use Type: None Hx Substance Use Treatment: No *Physical Exam - Vital Signs Last Vital Signs Temp Pulse Resp BP Pulse Ox 98.1 F 77 18 144/78 100 10/31/18 10:43 10/31/18 10:43 10/31/18 10:43 10/31/18 10:43 10/31/18 10:43 - Physical Exam General Appearance: No: Apparent Distress Respiratory/Chest: positive: Lungs Clear, Normal Breath Sounds. negative: Respiratory Distress Cardiovascular: positive: Regular Rhythm, Regular Rate, S1, S2. negative: Murmur Gastrointestinal/Abdominal: positive: Normal Bowel Sounds, Soft. negative: Tender, Distended, Guarding, Rebound Neurologic: positive: Alert, Normal Mood/Affect Medical Decision Making - Medical Decision Making 48 y/o F hx of HTN presents with feeling anxious from last night. Was seen 2 weeks ago and given Hydroxyzine for anxiety, which she took, but states it was not helping with her symptoms. Mentions feeling a bit sad and anxious ever since from her partner 3 weeks ago. Saw her PCP last week who was going to refer her to a psychiatrist but has not yet heard anything back from him. Mentions feeling "earthquake" sensation in her abdomen when she gets anxious. Currently denies any symptoms. Denies S/H ideation, hallucinations, sob , cp, n/v. Likely anxiety Will refer to psychiatrist for further eval 10/31/18 11:44 *DC/Admit/Observation/Transfer Diagnosis at time of Disposition: Anxiety - Discharge Dispostion Disposition: HOME Condition at time of disposition: Stable Decision to Admit order: No - Referrals Referrals: Xavier Richards MD [Staff Physician] - Call tomorrow - Patient Instructions Printed Discharge Instructions: DI for Anxiety -- Adult Additional Instructions: Thank you for choosing [facility]. It was a pleasure taking care of you. Please follow-up with psychiatrist for further evaluation of your symptoms Consider yoga, mediation or other methods to help with your symptoms Return to the Emergency Department if your symptoms worsen or persist, have thoughts of hurting yourself or others or other concerning symptoms. Chin por elegir el [facility]. Fue un placer cuidar de ti. Holli un seguimiento con el psiquiatra para coral evaluacin adicional de zeenat sntomas. Considere el yoga, la mediacin u otros mtodos para ayudar con zeenat sntomas. Regrese al departamento de emergencias si zeenat sntomas empeoran o persisten, piense en lastimarse a s mismo oa otros u otros sntomas relacionados. Print Language: YORUBA - Post Discharge Activity
== END 2018-10-31 12:27 | disposition home or self-care (01) ==
LOC: JERFT 10:33
DX: F41.0 Panic disorder [episodic paroxysmal anxiety] (principal); F41.9 Anxiety disorder, unspecified; I10 Essential (primary) hypertension
CPT/HCPCS: 99281-25

== ENCOUNTER 2018-12-03 07:03 | Emergency (ER) | payer OTHER ==
[2018-12-03 07:46] VITALS: BP 127/77; PULSE 73; TEMP 98.4; BMI 25.4
[2018-12-03] MEDS ORDERED: IBUPROFEN 600 MG TABLET (FP) PO ONE (07:59)
[2018-12-03] MEDS ORDERED: KETOROLAC TROMETHAMINE 60 MG/2 ML VIAL IM ONE (08:04)
[2018-12-03] MEDS ORDERED: KETOROLAC TROMETHAMINE 60 MG/2 ML VIAL ONE (08:11)
--- NOTE | 2018-12-03 08:16 | PDOC ---
History of Present Illness - General Chief Complaint: Psychiatric Stated Complaint: HIGH BP Time Seen by Provider: 12/03/18 07:55 History Source: Patient Exam Limitations: No Limitations - History of Present Illness Initial Comments: 48-year-old female with history of anxiety and insomnia intermittent migraines and hypertension presents to ED with inability to sleep for the past 2 days despite taking melatonin 1 mg and try relaxation techniques. Patient also concerned with elevated BP of 145/88 yesterday despite taking her amlodipine and hydrochlorothiazide. Patient denies palpitations, chest pain, difficulty breathing, visual changes, nausea, or back pain. Patient currently stating mild right temporal throbbing discomfort which she states is normal presentation when she experiences a migraine and so took Tylenol last night with minimal relief. Patient states that he has been more anxious and since she has been out of work over the summer worrying about paying her rent. 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 and is anxious about starting work this coming week Timing/Duration: other (2 days) Severity: mild Associated Symptoms: anxiety, insomnia Past History - Past Medical History Allergies/Adverse Reactions: Allergies No Known Allergies Allergy (Verified 12/03/18 07:42) Home Medications: Ambulatory Orders Hydrochlorothiazide [Hctz -] 12.5 mg PO DAILY 05/22/18 Methocarbamol [Robaxin -] 500 mg PO BID #30 tablet 05/27/18 Hydroxyzine HCl 50 mg PO TID PRN #20 tablet 10/19/18 Psychosocial History: Yes: anxiety, panic attacks, hypertension Surgical History: Yes: Noncontributory - Family History Significant Family History: Yes: no pertinent family hx - Reproductive History Is Patient Now?: No - Immunization History Immunization Up to Date: Yes Tetanus Status: Unknown - Social History Smoking History: No Smoking Status: Never smoked Patient Lives Alone: Yes Lives With: lives alone *Review of Systems - Review of Systems Able to Perform ROS?: Yes Constitutional: No: Symptoms Reported HEENTM: No: Symptoms Reported Respiratory: No: Symptoms reported Cardiac (ROS): No: Symptoms Reported ABD/GI: No: Symptoms Reported : No: Symptoms Reported Musculoskeletal: Yes: Neck Pain Integumentary: No: Symptoms Reported Neurological: Yes: Headache Psychiatric: Yes: Anxiety, Stressors, Sleep Pattern Change. No: Change in Appetite Endocrine: No: Symptoms Reported Hematologic/Lymphatic: No: Symptoms Reported *Physical Exam - Vital Signs Last Vital Signs Temp Pulse Resp BP Pulse Ox 98.4 F 73 18 127/77 100 12/03/18 07:42 12/03/18 07:42 12/03/18 07:42 12/03/18 07:42 12/03/18 07:42 - Physical Exam General Appearance: Yes: Nourished, Appropriately Dressed. No: Apparent Distress HEENT: positive: EOMI, JAKUB, TMs Normal, Pharynx Normal. negative: Pale Conjunctivae Neck: positive: Tender (rt trapezius), Supple. negative: Decreased range of motion Respiratory/Chest: positive: Lungs Clear, Normal Breath Sounds. negative: Chest Tender, Respiratory Distress, Accessory Muscle Use Cardiovascular: positive: Regular Rhythm, Regular Rate. negative: Murmur Musculoskeletal: negative: Vertebral Tenderness Extremity: positive: Normal Capillary Refill, Normal Inspection, Normal Range of Motion Integumentary: positive: Normal Color, Warm, Moist Neurologic: positive: Motor Strength 5/5 Plan - Progress Note Progress Note: 12/03/18 08:14 CC: Insomnia increased anxiety right neck pain and right temporal pain for the past 2-3 days unrelieved with Tylenol and melatonin 1 mg. No other complaints. Exam: Vital signs stable. patient with tenderness to the right trapezius otherwise no abnormal findings Plan: Discussed other options such as teas increasing melatonin to remove milligrams and alternating with Motrin Tylenol as needed. Patient also recommended to eat small frequent meals taking plenty of fluids. Toradol IM ordered *DC/Admit/Observation/Transfer Diagnosis at time of Disposition: Anxiety, Headache - Discharge Dispostion Disposition: HOME Condition at time of disposition: Improved - Referrals Referrals: Maria Del Carmen Angulo MD [Primary Care Provider] - - Patient Instructions Printed Discharge Instructions: DI for Anxiety -- Adult, Anxiety and Panic Attacks (Alternative Therapy), Yoga May Help Reduce Anxiety and Stress Additional Instructions: Enclosed is information in regards to anxiety. In addition eat small frequent meals up-to-date drinking plenty of fluids and may alternate between Motrin and Tylenol for headache. I also recommend increasing your melatonin either to 2-3 mg along with adding herbal teas Print Language: THAI - Post Discharge Activity
== END 2018-12-03 08:45 | disposition home or self-care (01) ==
LOC: JER 07:03
PROC: 3E0233Z Introduction of Anti-inflammatory into Muscle, Percutaneous Approach (ICD-10-PCS; principal; 2018-12-03)
DX: F41.9 Anxiety disorder, unspecified (principal); R51 Headache; I10 Essential (primary) hypertension; F41.0 Panic disorder [episodic paroxysmal anxiety]
CPT/HCPCS: 96372; 99282-25

== ENCOUNTER 2020-06-10 08:51 | Emergency (ER) | payer OTHER ==
[2020-06-10 08:56] VITALS: BMI 25.6
[2020-06-10 10:06] LABS: EOS % 1.7 % (0-4.5); HEMOGLOBIN 14.1 GM/dL (10.7-15.3); LYMPH % 31.5 % (8-40); MCH 31.6 pg (25.7-33.7); MCHC 34.4 g/dl (32.0-36.0); MEAN PLT VOLUME 7.6 fl (7.5-11.1); MONO % 10.1 % (3.8-10.2); NEUT % 55.7 % (42.8-82.8); PLATELET COUNT 384 K/MM3 (134-434); RBC 4.46 M/mm3 (3.60-5.2); RDW 13.7 % (11.6-15.6); WHITE BLOOD COUNT 6.3 K/mm3 (4.0-10.0)
[2020-06-10 10:19] LABS: INR 0.97 (0.83-1.09); PROTHROMBIN TIME (PATIENT) 11.8 SEC (9.7-13.0)
[2020-06-10 10:22] LABS: ACTIVATED PTT 29.3 SECONDS (25.2-36.5)
[2020-06-10 10:27] LABS: CHLORIDE 105 mmol/L (98-107); SODIUM 138 mmol/L (136-145)
[2020-06-10 10:30] LABS: ANION GAP 2 MMOL/L (8-16); CO2 31 mmol/L (21-32); GLUCOSE,RANDOM 106 mg/dL (74-106); MAGNESIUM 2.1 mg/dL (1.8-2.4)
[2020-06-10 10:33] LABS: CREATININE 0.7 mg/dL (0.55-1.3); SGOT/AST 22 U/L (15-37); SGPT/ALT 32 U/L (13-61)
[2020-06-10 10:34] LABS: BILIRUBIN,TOTAL 0.4 mg/dL (0.2-1); TOT PROT 8.3 g/dl (6.4-8.2)
[2020-06-10 10:36] LABS: ALK PHOS 105 U/L (45-117)
[2020-06-10 10:40] LABS: CALCIUM 9.8 mg/dL (8.5-10.1)
[2020-06-10 14:25] VITALS: BP 133/81; PULSE 88; TEMP 97.9
== END 2020-06-10 15:11 | disposition home or self-care (01) ==
LOC: JER 08:51
DX: R07.9 Chest pain, unspecified (principal); M54.2 Cervicalgia
CPT/HCPCS: 36415; 71046-TC-FY; 71275-TC; 74174-TC; 80053; 82550; 83735; 84484; 84703; 85025; 85379; 85610; 85730; 93005; 93010; 99285-25; Q9967

== ENCOUNTER 2020-06-19 17:14 | Emergency (ER) | payer OTHER ==
[2020-06-19 17:31] VITALS: BP 152/78; PULSE 92; TEMP 98; BMI 25.6
[2020-06-19] MEDS ORDERED: FAMOTIDINE 20 MG/50 ML IVPB 20 MG/50 ML MG IVPB ONE ×2 (19:05→19:21)
[2020-06-19] MEDS ORDERED: SUCRALFATE 1 GM/10 ML UNIT DOSE CUPS PO ONE (19:05)
[2020-06-19] MEDS ORDERED: MAG HYDROX/AL HYDROX/SIMETH 30 ML UNIT-DOSE CUP PO ONE (19:05)
[2020-06-19] MEDS ORDERED: MAG HYDROX/AL HYDROX/SIMETH 30 ML UNIT-DOSE CUP ONE (19:21)
[2020-06-19 20:41] LABS: BASO % 0.6 % (0-2.0); EOS % 0.9 % (0-4.5); HEMOGLOBIN 14.5 GM/dL (10.7-15.3); LYMPH % 28.9 % (8-40); MCH 31.5 pg (25.7-33.7); MCHC 33.7 g/dl (32.0-36.0); MEAN CELL VOLUME 93.3 fl (80-96); MONO % 8.6 % (3.8-10.2); PLATELET COUNT 321 K/MM3 (134-434); RBC 4.61 M/mm3 (3.60-5.2); RDW 14.3 % (11.6-15.6); WHITE BLOOD COUNT 7.7 K/mm3 (4.0-10.0)
[2020-06-19 20:48] LABS: CHLORIDE 103 mmol/L (98-107); POTASSIUM 4.3 mmol/L (3.5-5.1); SODIUM 136 mmol/L (136-145)
[2020-06-19 20:51] LABS: ALBUMIN 4.8 g/dl (3.4-5.0); ANION GAP 4 MMOL/L (8-16); BLOOD UREA NITROGEN 10.4 mg/dL (7-18); CALCIUM 9.8 mg/dL (8.5-10.1); CO2 30 mmol/L (21-32); GLUCOSE,RANDOM 89 mg/dL (74-106); LIPASE 141 U/L (73-393)
[2020-06-19 20:54] LABS: CREATININE 0.9 mg/dL (0.55-1.3); SGOT/AST 23 U/L (15-37); SGPT/ALT 36 U/L (13-61)
[2020-06-19 20:56] LABS: BILIRUBIN,TOTAL 0.4 mg/dL (0.2-1); TOT PROT 9.1 g/dl (6.4-8.2)
[2020-06-19 20:57] LABS: ALK PHOS 117 U/L (45-117)
[2020-06-19 22:09] LABS: EPI CELLS 16 /uL (0-25.1); HYALINE CASTS 0 /uL (0-3.1); URINE APPEARANCE CLEAR; URINE BACTERIA 206 /uL (0-1359); URINE BILIRUBIN NEGATIVE (NEGATIVE); URINE COLOR YELLOW; URINE GLUCOSE (UA) NEGATIVE (NEGATIVE); URINE KETONE NEGATIVE (NEGATIVE); URINE LEUK ESTERASE TRACE (NEGATIVE); URINE NITRITE NEGATIVE (NEGATIVE); URINE PROTEIN NEGATIVE (NEGATIVE); URINE RBC 7 /uL (0-23.9); URINE UROBILINOGEN 0.2 mg/dL (0.2-1.0); URINE WBC 24 /uL (0-25.8)
== END 2020-06-19 23:37 | disposition home or self-care (01) ==
LOC: JER 17:14
PROC: 3E0333Z Introduction of Anti-inflammatory into Peripheral Vein, Percutaneous Approach (ICD-10-PCS; principal; 2020-06-19)
PROC: 3E033GC Introduction of Other Therapeutic Substance into Peripheral Vein, Percutaneous Approach (ICD-10-PCS; 2020-06-19)
PROC: 3E0333Z Introduction of Anti-inflammatory into Peripheral Vein, Percutaneous Approach (ICD-10-PCS; 2020-06-19)
PROC: 3E0333Z Introduction of Anti-inflammatory into Peripheral Vein, Percutaneous Approach (ICD-10-PCS; 2020-06-19)
PROC: 3E0233Z Introduction of Anti-inflammatory into Muscle, Percutaneous Approach (ICD-10-PCS; 2020-06-19)
PROC: 3E033GC Introduction of Other Therapeutic Substance into Peripheral Vein, Percutaneous Approach (ICD-10-PCS; 2020-06-19)
PROC: 3E033GC Introduction of Other Therapeutic Substance into Peripheral Vein, Percutaneous Approach (ICD-10-PCS; 2020-06-19)
DX: R07.9 Chest pain, unspecified (principal); R51.9 Headache, unspecified; R10.9 Unspecified abdominal pain
CPT/HCPCS: 36415; 71046-TC-FY; 76705-TC; 80053; 81003; 82550; 83690; 84443; 84484; 84703; 85025; 87086; 93005; 93010; 99285-25

== ENCOUNTER 2021-01-17 21:49 | Emergency (ER) | payer OTHER ==
[2021-01-17 22:00] VITALS: TEMP 98.1; BMI 25.6
[2021-01-17] MEDS ORDERED: ACETAMINOPHEN 500 MG TABLET (FP) PO ONE (22:29)
[2021-01-17] MEDS ORDERED: ACETAMINOPHEN 325 MG TABLET (FP) ONE (22:43)
[2021-01-17 23:33] LABS: EPI CELLS 10 /uL (0-25.1); HYALINE CASTS 0 /uL (0-3.1); PH,URINE 6.5 (5.0-8.0); URINE APPEARANCE CLEAR; URINE BILIRUBIN NEGATIVE (NEGATIVE); URINE COLOR DK YELLOW; URINE GLUCOSE (UA) NEGATIVE (NEGATIVE); URINE KETONE NEGATIVE (NEGATIVE); URINE LEUK ESTERASE NEGATIVE (NEGATIVE); URINE NITRITE POSITIVE (NEGATIVE); URINE PROTEIN NEGATIVE (NEGATIVE); URINE RBC 5 /uL (0-23.9); URINE WBC 2 /uL (0-25.8)
[2021-01-17 23:40] LABS: URINE BACTERIA RARE /hpf (NEGATIVE)
[2021-01-17 23:42] LABS: BASO % 0.9 % (0-2.0); EOS % 1.6 % (0-4.5); HEMOGLOBIN 12.9 GM/dL (10.7-15.3); LYMPH % 19.4 % (8-40); MCH 30.7 pg (25.7-33.7); MCHC 33.9 g/dl (32.0-36.0); MEAN CELL VOLUME 90.4 fl (80-96); MEAN PLT VOLUME 7.4 fl (7.5-11.1); MONO % 10.1 % (3.8-10.2); PLATELET COUNT 336 10^3/uL (134-434); WHITE BLOOD COUNT 8.2 K/mm3 (4.0-10.0)
[2021-01-17 23:44] LABS: CHLORIDE 105 mmol/L (98-107); SODIUM 139 mmol/L (136-145)
[2021-01-17 23:45] LABS: BLOOD UREA NITROGEN 9.6 mg/dL (7-18); CALCIUM 8.7 mg/dL (8.5-10.1)
[2021-01-17 23:46] LABS: ALBUMIN 3.4 g/dl (3.4-5.0); ANION GAP 3 MMOL/L (8-16); CO2 32 mmol/L (21-32); GLUCOSE,RANDOM 115 mg/dL (74-106)
[2021-01-17 23:50] LABS: BILIRUBIN,TOTAL 0.4 mg/dL (0.2-1); CREATININE 0.8 mg/dL (0.55-1.3); SGOT/AST 21 U/L (15-37); SGPT/ALT 24 U/L (13-61); TOT PROT 7.6 g/dl (6.4-8.2)
[2021-01-17 23:52] LABS: ALK PHOS 126 U/L (45-117)
[2021-01-18 00:36] VITALS: BP 106/70; PULSE 71
[2021-01-18] MEDS ORDERED: CEFTRIAXONE 1 GM in DEXTROSE 5%-WATER - 50 ML IVPB ONE (01:03)
[2021-01-18] MEDS ORDERED: CEFTRIAXONE 1 GM/50 ML BAG ONE (01:20)
== END 2021-01-18 03:01 | disposition home or self-care (01) ==
LOC: JER 21:49
DX: I10 Essential (primary) hypertension (principal)
CPT/HCPCS: 36415; 71046-TC-FY; 80053; 81003; 82550; 84484; 85025; 87086; 93005; 93010; 99284-25; C9803; U0003; U0005

== ENCOUNTER 2021-01-29 20:59 | Emergency (ER) | payer OTHER ==
[2021-01-29 21:04] VITALS: TEMP 97; BMI 25.2
[2021-01-29] MEDS ORDERED: KETOROLAC TROMETHAMINE 15 MG/ML VIAL IM ONE (22:14)
[2021-01-29] MEDS ORDERED: METOCLOPRAMIDE HCL 10 MG TABLET (FP) PO ONE ×2 (22:14→22:58)
[2021-01-29] MEDS ORDERED: ACETAMINOPHEN 500 MG TABLET (FP) PO ONE (22:15)
[2021-01-29] MEDS ORDERED: FAMOTIDINE 10 MG TABLET PO ONE (22:41)
[2021-01-29] MEDS ORDERED: MAG HYDROX/AL HYDROX/SIMETH 30 ML UNIT-DOSE CUP PO ONE (22:41)
[2021-01-29] MEDS ORDERED: FAMOTIDINE 10 MG TABLET ONE (22:58)
[2021-01-29] MEDS ORDERED: ACETAMINOPHEN 325 MG TABLET (FP) ONE (22:58)
[2021-01-29] MEDS ORDERED: MAG HYDROX/AL HYDROX/SIMETH 30 ML UNIT-DOSE CUP ONE ×2 (22:59→23:05)
[2021-01-30 00:14] LABS: PH,URINE 7.5 (5.0-8.0); URINE APPEARANCE CLEAR; URINE BILIRUBIN NEGATIVE (NEGATIVE); URINE COLOR YELLOW; URINE GLUCOSE (UA) NEGATIVE (NEGATIVE); URINE KETONE NEGATIVE (NEGATIVE); URINE LEUK ESTERASE NEGATIVE (NEGATIVE); URINE NITRITE NEGATIVE (NEGATIVE); URINE PROTEIN NEGATIVE (NEGATIVE); URINE UROBILINOGEN 0.2 mg/dL (0.2-1.0)
[2021-01-30 02:52] VITALS: BP 149/67; PULSE 72
== END 2021-01-30 02:54 | disposition home or self-care (01) ==
LOC: JER 20:59
PROC: 3E0233Z Introduction of Anti-inflammatory into Muscle, Percutaneous Approach (ICD-10-PCS; principal; 2021-01-29)
DX: R03.0 Elevated blood-pressure reading, without diagnosis of hypertension (principal)
CPT/HCPCS: 36415; 81003; 82550; 84484; 87086; 93005; 93010; 99284-25

== ENCOUNTER 2022-04-08 16:12 | Emergency (ER) | payer OTHER ==
[2022-04-08 17:14] VITALS: BP 131/69; PULSE 75; RESP 18; TEMP 98.1; BMI 24.8
[2022-04-08] MEDS ORDERED: DIPHTH,PERTUSS(ACELL),TET 0.5 ML DISP.SYRIN IM ONE ×2 (18:20→18:58)
[2022-04-08] MEDS ORDERED: ACETAMINOPHEN 500 MG TABLET (FP) PO ONE (18:37)
[2022-04-08] MEDS ORDERED: ACETAMINOPHEN 500 MG TABLET (FP) ONE (18:58)
== END 2022-04-08 19:42 | disposition home or self-care (01) ==
LOC: JERFT 16:12
PROC: 0HQGXZZ Repair Left Hand Skin, External Approach (ICD-10-PCS; principal; 2022-04-08)
PROC: 3E0234Z Introduction of Serum, Toxoid and Vaccine into Muscle, Percutaneous Approach (ICD-10-PCS; 2022-04-08)
DX: S61.012A Laceration without foreign body of left thumb without damage to nail, initial encounter (principal); W26.0XXA Contact with knife, initial encounter
CPT/HCPCS: 12001-25; 90471; 90715; 99283-25

== ENCOUNTER 2022-04-17 09:30 | Emergency (ER) | payer OTHER ==
[2022-04-17 09:36] VITALS: BP 135/74; PULSE 71; RESP 18; TEMP 99.2; BMI 24.8
== END 2022-04-17 10:45 | disposition home or self-care (01) ==
LOC: JER 09:30 → JERFT 09:30
DX: Z48.02 Encounter for removal of sutures (principal)
CPT/HCPCS: 99281-25

== ENCOUNTER 2022-05-08 17:19 | Emergency (ER) | payer OTHER ==
[2022-05-08 17:25] VITALS: BP 140/69; PULSE 80; RESP 18; TEMP 97.9; BMI 25.4
[2022-05-08] MEDS ORDERED: KETOROLAC TROMETHAMINE 15 MG/ML VIAL IVPUSH ONE (18:30)
[2022-05-08] MEDS ORDERED: SODIUM CHLORIDE 0.9% 500 ML INFUS.BAG IV ONE (18:30)
[2022-05-08] MEDS ORDERED: ONDANSETRON 4 MG/2 ML VIAL IVPUSH ONE (18:36)
[2022-05-08] MEDS ORDERED: KETOROLAC TROMETHAMINE 15 MG/ML VIAL ONE (19:05)
[2022-05-08] MEDS ORDERED: ONDANSETRON 4 MG/2 ML VIAL ONE (19:05)
[2022-05-08 19:46] LABS: BASO % 0.6 % (0-2.0); HEMATOCRIT 41.6 % (32.4-45.2); LYMPH % 29.9 % (8-40); MCH 30.9 pg (25.7-33.7); MCHC 33.7 g/dl (32.0-36.0); MEAN CELL VOLUME 91.6 fl (80-96); MEAN PLT VOLUME 7.9 fl (7.5-11.1); MONO % 8.6 % (3.8-10.2); NEUT % 59.9 % (42.8-82.8); PLATELET COUNT 307 10^3/uL (134-434); RBC 4.54 M/mm3 (3.60-5.2); RDW 14.5 % (11.6-15.6); WHITE BLOOD COUNT 7.8 K/mm3 (4.0-10.0)
[2022-05-08 20:03] LABS: CALCIUM 9.7 mg/dL (8.5-10.1)
[2022-05-08 20:04] LABS: BLOOD UREA NITROGEN 11.6 mg/dL (7-18); MAGNESIUM 2.1 mg/dL (1.8-2.4)
[2022-05-08 20:07] LABS: CREATININE 0.7 mg/dL (0.55-1.3)
[2022-05-08 20:08] LABS: BILIRUBIN,TOTAL 0.4 mg/dL (0.2-1); TOT PROT 7.8 g/dl (6.4-8.2)
== END 2022-05-08 21:43 | disposition home or self-care (01) ==
LOC: JER 17:19
PROC: 3E0333Z Introduction of Anti-inflammatory into Peripheral Vein, Percutaneous Approach (ICD-10-PCS; principal; 2022-05-08)
DX: R11.2 Nausea with vomiting, unspecified (principal); M54.2 Cervicalgia; R53.1 Weakness
CPT/HCPCS: 0241U-QW; 36415; 71046-TC-FY; 80053; 83690; 83735; 85025; 93005; 93010; 99285-25

== ENCOUNTER 2023-01-22 21:59 | Emergency (ER) | payer OTHER ==
[2023-01-22 22:04] VITALS: BP 135/73; PULSE 86; RESP 18; TEMP 99.6; BMI 23.8
[2023-01-22] MEDS ORDERED: guaiFENesin 200 MG/10 ML 10 ML UNIT-DOSE CUPS PO ONE (22:46)
[2023-01-22] MEDS ORDERED: ACETAMINOPHEN 500 MG TABLET (FP) PO ONE (22:46)
[2023-01-22] MEDS ORDERED: guaiFENesin/D-METHORPHAN HB 10 ML UNIT-DOSE CUPS ONE (23:08)
[2023-01-22] MEDS ORDERED: ACETAMINOPHEN 500 MG TABLET (FP) ONE (23:08)
== END 2023-01-23 00:01 | disposition home or self-care (01) ==
LOC: JERFT 21:59
DX: I10 Essential (primary) hypertension (principal); J06.9 Acute upper respiratory infection, unspecified; R05.9 Cough, unspecified; B97.89 Other viral agents as the cause of diseases classified elsewhere; M25.512 Pain in left shoulder; R09.89 Other specified symptoms and signs involving the circulatory and respiratory systems; M79.602 Pain in left arm
CPT/HCPCS: 71046-TC-FY; 93005; 93010; 99284-25

== ENCOUNTER 2023-03-05 07:52 | Emergency (ER) | payer OTHER ==
[2023-03-05 07:56] VITALS: BMI 23.8
[2023-03-05] MEDS ORDERED: MAG HYDROX/AL HYDROX/SIMETH 30 ML UNIT-DOSE CUP PO ONE (08:47)
[2023-03-05] MEDS ORDERED: FAMOTIDINE 20 MG/50 ML IVPB 20 MG/50 ML MG IVPB ONE ×2 (08:47→09:15)
[2023-03-05] MEDS ORDERED: ONDANSETRON 4 MG/2 ML VIAL IVPUSH ONE (08:47)
[2023-03-05 09:07] LABS: EPI CELLS 4 /uL (0-25.1); HCG,QUALITATIVE URINE Negative; HYALINE CASTS 0 /uL (0-3.1); URINE APPEARANCE CLEAR; URINE BACTERIA 15 /uL (0-1359); URINE BILIRUBIN NEGATIVE (NEGATIVE); URINE COLOR YELLOW; URINE GLUCOSE (UA) NEGATIVE (NEGATIVE); URINE KETONE NEGATIVE (NEGATIVE); URINE LEUK ESTERASE 1+ (NEGATIVE); URINE NITRITE NEGATIVE (NEGATIVE); URINE PROTEIN NEGATIVE (NEGATIVE); URINE RBC 6 /uL (0-23.9); URINE UROBILINOGEN 0.2 mg/dL (0.2-1.0); URINE WBC 7 /uL (0-25.8)
[2023-03-05] MEDS ORDERED: ONDANSETRON 4 MG/2 ML VIAL ONE (09:14)
[2023-03-05] MEDS ORDERED: MAG HYDROX/AL HYDROX/SIMETH 30 ML UNIT-DOSE CUP ONE (09:15)
[2023-03-05 09:41] LABS: BASO % 0.2 % (0-2.0); EOS % 1.3 % (0-4.5); HEMATOCRIT 41.7 % (32.4-45.2); LYMPH % 16.4 % (8-40); MCH 30.9 pg (25.7-33.7); MCHC 33.5 g/dl (32.0-36.0); MEAN CELL VOLUME 92.2 fl (80-96); MEAN PLT VOLUME 7.8 fl (7.5-11.1); MONO % 4.1 % (3.8-10.2); PLATELET COUNT 332 10^3/uL (134-434); RBC 4.52 M/mm3 (3.60-5.2); RDW 14.6 % (11.6-15.6); WHITE BLOOD COUNT 5.3 K/mm3 (4.0-10.0)
[2023-03-05 10:09] LABS: POTASSIUM 4.5 mmol/L (3.5-5.1)
[2023-03-05 10:11] LABS: CALCIUM 9.2 mg/dL (8.5-10.1)
[2023-03-05 10:12] LABS: ALBUMIN 3.5 g/dl (3.4-5.0); BLOOD UREA NITROGEN 11.5 mg/dL (7-18)
[2023-03-05 10:15] LABS: CREATININE 0.7 mg/dL (0.55-1.3)
[2023-03-05 10:16] LABS: TOT PROT 7.2 g/dl (6.4-8.2)
[2023-03-05] MEDS ORDERED: ACETAMINOPHEN 1000 MG/100 ML BAG IVPB ONE (14:02)
[2023-03-05] MEDS ORDERED: ACETAMINOPHEN INJECTION 100 ML IVPB ONE (14:16)
[2023-03-05 16:30] VITALS: BP 116/63; PULSE 63; RESP 19; TEMP 98.3
== END 2023-03-05 16:27 | disposition home or self-care (01) ==
LOC: JER 07:52
PROC: 3E033GC Introduction of Other Therapeutic Substance into Peripheral Vein, Percutaneous Approach (ICD-10-PCS; principal; 2023-03-05)
PROC: 3E033NZ Introduction of Analgesics, Hypnotics, Sedatives into Peripheral Vein, Percutaneous Approach (ICD-10-PCS; 2023-03-05)
PROC: 3E033GC Introduction of Other Therapeutic Substance into Peripheral Vein, Percutaneous Approach (ICD-10-PCS; 2023-03-05)
DX: R10.13 Epigastric pain (principal); R11.0 Nausea; R19.7 Diarrhea, unspecified; K21.9 Gastro-esophageal reflux disease without esophagitis
CPT/HCPCS: 36415; 74177-TC; 80053; 81003; 83690; 83735; 84484; 84703; 85025; 87086; 93005; 93010; 99285-25; Q9967

== ENCOUNTER 2023-06-22 17:25 | Emergency (ER) | payer OTHER ==
[2023-06-22 17:33] VITALS: BP 162/74; PULSE 70; RESP 18; TEMP 97.7; BMI 23.2
== END 2023-06-22 18:50 | disposition home or self-care (01) ==
LOC: JER 17:25
DX: I10 Essential (primary) hypertension (principal)
CPT/HCPCS: 99282-25

== ENCOUNTER 2023-12-23 17:54 | Emergency (ER) | payer OTHER ==
[2023-12-23 18:02] VITALS: BP 128/81; PULSE 83; RESP 18; TEMP 97.8; BMI 23.8
[2023-12-23] MEDS ORDERED: ACETAMINOPHEN INJECTION 100 ML ONE (19:19)
[2023-12-23] MEDS ORDERED: FAMOTIDINE 20 MG/50 ML IVPB 20 MG/50 ML MG IVPB ONE (19:20)
[2023-12-23] MEDS ORDERED: MAG HYDROX/AL HYDROX/SIMETH 30 ML UNIT-DOSE CUP ONE (19:20)
[2023-12-23 19:37] LABS: BASO % 0.1 % (0-2.0); HEMATOCRIT 43.5 % (32.4-45.2); HEMOGLOBIN 14.5 GM/dL (10.7-15.3); LYMPH % 16.1 % (8-40); MCH 30.6 pg (25.7-33.7); MCHC 33.5 g/dl (32.0-36.0); MEAN CELL VOLUME 91.4 fl (80-96); MEAN PLT VOLUME 7.6 fl (7.5-11.1); MONO % 3.2 % (3.8-10.2); NEUT % 79.6 % (42.8-82.8); PLATELET COUNT 273 10^3/uL (134-434); RBC 4.75 M/mm3 (3.60-5.2); RDW 13.8 % (11.6-15.6)
[2023-12-23 19:39] LABS: EPI CELLS 2 /uL (0-25.1); HYALINE CASTS 0 /uL (0-3.1); URINE APPEARANCE CLEAR; URINE BACTERIA 11 /uL (0-1359); URINE BILIRUBIN NEGATIVE (NEGATIVE); URINE COLOR YELLOW; URINE GLUCOSE (UA) NEGATIVE (NEGATIVE); URINE KETONE NEGATIVE (NEGATIVE); URINE LEUK ESTERASE 1+ (NEGATIVE); URINE NITRITE NEGATIVE (NEGATIVE); URINE PROTEIN NEGATIVE (NEGATIVE); URINE RBC 10 /uL (0-23.9); URINE UROBILINOGEN 0.2 mg/dL (0.2-1.0); URINE WBC 3 /uL (0-25.8)
[2023-12-23 19:44] LABS: INR 1.04 (0.83-1.09); PROTHROMBIN TIME (PATIENT) 11.7 SEC (9.7-13.0)
[2023-12-23 19:46] LABS: ACTIVATED PTT 32.1 SECONDS (25.2-36.5)
[2023-12-23] MEDS: ACETAMINOPHEN 1000 MG/100 ML BAG IVPB ONE (19:48)
[2023-12-23] MEDS: MAG HYDROX/AL HYDROX/SIMETH 30 ML UNIT-DOSE CUP PO ONE (19:48)
[2023-12-23] MEDS: FAMOTIDINE 20 MG/50 ML IVPB 20 MG/50 ML MG IVPB ONE (19:48)
[2023-12-23 19:51] LABS: POTASSIUM 4.1 mmol/L (3.5-5.1)
[2023-12-23 19:53] LABS: CALCIUM 9.5 mg/dL (8.5-10.1)
[2023-12-23 19:54] LABS: BLOOD UREA NITROGEN 14.3 mg/dL (7-18)
[2023-12-23 19:56] LABS: CREATININE 0.8 mg/dL (0.55-1.3)
[2023-12-23 19:58] LABS: BILIRUBIN,TOTAL 0.8 mg/dL (0.2-1); TOT PROT 7.7 g/dl (6.4-8.2)
[2023-12-23 20:47] LABS: HIV INTERPRETATION NEGATIVE (NEGATIVE)
[2023-12-23] MEDS ORDERED: KETOROLAC TROMETHAMINE 30 MG/1 ML VIAL ONE (21:25)
[2023-12-23] MEDS: KETOROLAC TROMETHAMINE 30 MG/1 ML VIAL IVPUSH ONE (21:32)
== END 2023-12-23 22:53 | disposition home or self-care (01) ==
LOC: JER 17:54
PROC: 3E033GC Introduction of Other Therapeutic Substance into Peripheral Vein, Percutaneous Approach (ICD-10-PCS; principal; 2023-12-23)
PROC: 3E033NZ Introduction of Analgesics, Hypnotics, Sedatives into Peripheral Vein, Percutaneous Approach (ICD-10-PCS; 2023-12-23)
PROC: 3E0333Z Introduction of Anti-inflammatory into Peripheral Vein, Percutaneous Approach (ICD-10-PCS; 2023-12-23)
DX: R07.9 Chest pain, unspecified (principal); R10.13 Epigastric pain; R50.9 Fever, unspecified; R11.0 Nausea
CPT/HCPCS: 36415; 71045-TC-FY; 80053; 81003; 83690; 84484; 84703; 85025; 85610; 85730; 86803; 87086; 87389; 93005; 93010; 99285-25; J0131

== ENCOUNTER → 2024-03-07 | Day surgery (SDC) | payer OTHER | END | disposition home or self-care (01) | LOC: FMAMMOTONE 08:35 | PROVIDERS: ATTEND Nurse Practitioner Family | PROC: 0HBU3ZX Excision of Left Breast, Percutaneous Approach, Diagnostic (ICD-10-PCS; principal; 2024-03-07) | DX: N60.12 Diffuse cystic mastopathy of left breast (principal); N64.89 Other specified disorders of breast; R92.1 Mammographic calcification found on diagnostic imaging of breast | CPT/HCPCS: 19081; 76098-TC-FY; 88305-TC ==

== ENCOUNTER 2024-08-08 18:01 | Emergency (ER) | payer OTHER ==
[2024-08-08 18:12] VITALS: BP 151/73; PULSE 95; RESP 18; TEMP 98.4; BMI 25.6
[2024-08-08] MEDS ORDERED: LIDOCAINE 4% PATCH TP ONE (19:33)
[2024-08-08] MEDS ORDERED: ACETAMINOPHEN 500 MG TABLET (FP) ONE (19:33)
[2024-08-08 19:42] LABS: ABSOLUTE IMMATURE GRANULOCYTES 0.03 x10^3/uL (0.0-0.031); BASOPHILS # 0.06 x10^3/uL (0.01-0.08); EOSINOPHIL % 1.6 % (0.7-5.8); HEMATOCRIT 42.5 % (34.1-44.9); HEMOGLOBIN 13.6 g/dL (11.2-15.7); MEAN CELL VOLUME 94.2 fl (79.4-94.8); MEAN PLT VOLUME 9.1 fl (9.4-12.3); MONOCYTE # 0.51 x10^3/uL (0.24-0.86); MONOCYTE % 8.1 % (4.7-12.5); PLATELET COUNT 299 x10^3/uL (182-369); RDW 13.3 % (12.3-16.6)
[2024-08-08] MEDS: ACETAMINOPHEN 500 MG TABLET (FP) PO ONE (19:46)
[2024-08-08] MEDS: LIDOCAINE 5% TOPICAL PATCH TP ONE (19:46)
[2024-08-08 20:06] LABS: POTASSIUM 4.5 mmol/L (3.5-5.1)
[2024-08-08 20:08] LABS: BLOOD UREA NITROGEN 13.9 mg/dL (7-18); CALCIUM 10.1 mg/dL (8.5-10.1)
[2024-08-08 20:09] LABS: ALBUMIN 3.9 g/dl (3.4-5.0)
[2024-08-08 20:12] LABS: CREATININE 0.9 mg/dL (0.55-1.3)
[2024-08-08 20:13] LABS: BILIRUBIN,TOTAL 0.4 mg/dL (0.2-1)
[2024-08-08] MEDS ORDERED: LIDOCAINE PATCH REMOVAL MC SCH (22:00)
== END 2024-08-08 21:21 | disposition home or self-care (01) ==
LOC: JER 18:01
DX: I10 Essential (primary) hypertension (principal); M54.2 Cervicalgia; R53.1 Weakness; R55 Syncope and collapse; R23.2 Flushing
CPT/HCPCS: 36415; 80053; 83735; 84484; 85025; 93005; 93010; 99285-25

== ENCOUNTER 2024-09-05 20:39 | Emergency (ER) | payer OTHER ==
[2024-09-05 20:47] VITALS: RESP 18; TEMP 98.1; BMI 25.2
[2024-09-05] MEDS ORDERED: RAPID SEQUENCE INTUBATION KIT NR ONE (21:09)
[2024-09-05] MEDS ORDERED: LIDOCAINE 5% TOPICAL PATCH ONE (22:40)
[2024-09-05] MEDS ORDERED: ACETAMINOPHEN INJECTION 100 ML ONE (22:40)
[2024-09-05] MEDS: ACETAMINOPHEN 1000 MG/100 ML BAG IVPB ONE (22:50)
[2024-09-05] MEDS: LIDOCAINE 5% TOPICAL PATCH TP ONE (22:50)
[2024-09-05 23:00] LABS: ABSOLUTE IMMATURE GRANULOCYTES 0.01 x10^3/uL (0.0-0.031); BASOPHILS # 0.06 x10^3/uL (0.01-0.08); EOSINOPHIL % 2.2 % (0.7-5.8); EOSINOPHILS # 0.14 x10^3/uL (0.04-0.36); HEMATOCRIT 41.6 % (34.1-44.9); HEMOGLOBIN 13.5 g/dL (11.2-15.7); MCHC 32.5 g/dl (32.2-35.5); MEAN CELL VOLUME 92.4 fl (79.4-94.8); MEAN PLT VOLUME 9.4 fl (9.4-12.3); MONOCYTE # 0.65 x10^3/uL (0.24-0.86); MONOCYTE % 10.2 % (4.7-12.5); PLATELET COUNT 286 x10^3/uL (182-369); RDW 12.8 % (12.3-16.6)
[2024-09-05 23:09] VITALS: BP 142/75; PULSE 74
[2024-09-05 23:17] LABS: POTASSIUM 4.5 mmol/L (3.5-5.1)
[2024-09-05 23:20] LABS: ALBUMIN 4.1 g/dl (3.4-5.0); CALCIUM 10.3 mg/dL (8.5-10.1)
[2024-09-05 23:21] LABS: BLOOD UREA NITROGEN 9.2 mg/dL (7-18)
[2024-09-05 23:24] LABS: CREATININE 0.6 mg/dL (0.55-1.3)
[2024-09-05 23:26] LABS: BILIRUBIN,TOTAL 0.5 mg/dL (0.2-1); TOT PROT 7.6 g/dl (6.4-8.2)
[2024-09-05] MEDS: LIDOCAINE PATCH REMOVAL MC SCH (23:54)
== END 2024-09-06 00:33 | disposition home or self-care (01) ==
LOC: JER 20:39
PROC: 3E033NZ Introduction of Analgesics, Hypnotics, Sedatives into Peripheral Vein, Percutaneous Approach (ICD-10-PCS; principal; 2024-09-05)
DX: R51.9 Headache, unspecified (principal); M54.2 Cervicalgia; R07.89 Other chest pain; H53.149 Visual discomfort, unspecified
CPT/HCPCS: 36415; 80053; 84484; 85025; 93005; 93010; 99284-25; J0131

== ENCOUNTER 2024-10-29 18:31 | Emergency (ER) | payer OTHER ==
[2024-10-29 18:39] VITALS: BP 127/78; PULSE 88; RESP 18; TEMP 98.2; BMI 25.0
[2024-10-29] MEDS ORDERED: ACETAMINOPHEN INJECTION 100 ML ONE (19:47)
[2024-10-29] MEDS ORDERED: LIDOCAINE 5% TOPICAL PATCH ONE (19:47)
[2024-10-29] MEDS ORDERED: ACETAMINOPHEN 325 MG TABLET (FP) ONE (20:24)
[2024-10-29] MEDS: LIDOCAINE 5% TOPICAL PATCH TP ONE (20:29)
[2024-10-29] MEDS: ACETAMINOPHEN 500 MG TABLET (FP) PO ONE (20:29)
[2024-10-29] MEDS: ACETAMINOPHEN 1000 MG/100 ML BAG IVPB ONE (20:30)
[2024-10-29 20:37] LABS: ABSOLUTE IMMATURE GRANULOCYTES 0.01 x10^3/uL (0.0-0.031); BASOPHILS # 0.05 x10^3/uL (0.01-0.08); EOSINOPHIL % 1.5 % (0.7-5.8); EOSINOPHILS # 0.11 x10^3/uL (0.04-0.36); IMMATURE PLATELET FRACTION # 5.30 x10^3/uL; MCHC 32.4 g/dl (32.2-35.5); MEAN CELL VOLUME 91.5 fl (79.4-94.8); MEAN PLT VOLUME 9.3 fl (9.4-12.3); MONOCYTE # 0.71 x10^3/uL (0.24-0.86); MONOCYTE % 9.7 % (4.7-12.5); RDW 13.1 % (12.3-16.6)
[2024-10-29 20:54] LABS: CO2 30.0 mmol/L (21-32); GLUCOSE,RANDOM 108.0 mg/dL (74-106)
[2024-10-29 20:57] LABS: CREATININE 0.8 mg/dL (0.55-1.3); SGOT/AST 30.0 U/L (15-37); SGPT/ALT 27.0 U/L (13-61); TOT PROT 8.1 g/dl (6.4-8.2)
[2024-10-29 21:00] LABS: ALK PHOS 128.0 U/L (45-117)
[2024-10-30 00:38] LABS: HCV DIAGNOSTIC IN-HOUSE W/RFLX NON-REACTIVE (NONREACTIVE)
[2024-10-30 00:43] LABS: HIV INTERPRETATION NEGATIVE (NEGATIVE)
[2024-10-30] MEDS ORDERED: LIDOCAINE PATCH REMOVAL MC SCH (07:30)
== END 2024-10-29 21:20 | disposition home or self-care (01) ==
LOC: JER 18:31
DX: R07.2 Precordial pain (principal); R11.0 Nausea; R20.2 Paresthesia of skin; M25.511 Pain in right shoulder; F41.9 Anxiety disorder, unspecified
CPT/HCPCS: 36415; 71046-TC-FY; 80053; 84484; 85025; 86803; 87389; 93005; 93010; 99285-25